=== PATIENT | male | born 1960 | race Caucasian/White ===

== ENCOUNTER 2016-11-15 17:13 | Emergency (ER) | payer OTHER ==
[~2016-11-15] VITALS: Ht 177.8 cm; Wt 97.0 kg
[~2016-11-15 17:13] MED LIST: ADVIL,NUPRIN,M200 MG PO; ALEVE220 M2 PO; AMLODIPINE BESYL5 MG PO; AUGMENTIN875 MG PO; CHLORDIAZEPOXID25 MG PO; LIBRIUM25 MG PO; LISINOPRIL20 MG PO; MOBIC7.5 MG PO
[2016-11-15 18:31] VITALS: BP 128/72
== END 2016-11-15 18:35 | disposition home or self-care (01) ==
LOC: EME 17:13
DX: F10.229 Alcohol dependence with intoxication, unspecified (principal); F17.200 Nicotine dependence, unspecified, uncomplicated; Z96.652 Presence of left artificial knee joint; Z96.651 Presence of right artificial knee joint
CPT/HCPCS: 99281; 99284

== ENCOUNTER 2016-12-22 15:25 | Inpatient (IN) | payer OTHER ==
[~2016-12-22] VITALS: Ht 177.8 cm; Wt 97.0 kg
[2016-12-22 16:26] LABS: HEMATOCRIT 43.9 % (38.0-50.0); MCHC 34.6 G/DL (30.0-36.0); MCV 95.4 FL (86-99); MEAN PLAT.VOLUME 11.3 uM^3 (9.0-12.4); PLATELET COUNT 51 K/uL (156-360); RBC DIS.WIDTH-CV 14.2 % (11.8-14.6); RBC DIS.WIDTH-SD 47.9 % (39-53); WHITE BLOOD COUNT 5.7 K/uL (4.1-10.2)
[2016-12-22 16:37] LABS: CHLORIDE 106 mEq/L (99-109); SODIUM 138 mEq/L (136-147)
[2016-12-22 16:39] LABS: GLUCOSE 96 mg/dL (70-99)
[2016-12-22 16:40] LABS: ANION GAP 11 MEQ/L (2-14)
[2016-12-22 16:42] LABS: SERUM ETHYL ALCOHOL < 10 mg/dL
[2016-12-22 16:43] LABS: GFR ESTIMATE (CALCULATED) > 59 mL/min/
[2016-12-22 16:44] LABS: UREA NITROGEN (BUN) 18 mg/dL (9-23)
[2016-12-22 17:28] VITALS: BP 153/98
[2016-12-22 18:01] VITALS: BP 161/108
[2016-12-22 18:31] VITALS: BP 110/92
[2016-12-22 20:13] LABS: PLAT.SUFFICIENCY DECREASED
[2016-12-22 22:01] LABS: AMPHETAMINE NEGATIVE (500 ng/mL); BARBITURATES NEGATIVE (200 ng/mL); BENZODIAZEPINES NEGATIVE (150 ng/mL); COCAINE NEGATIVE (150 ng/mL); INTERNAL CONTROLS VALID? YES; METHADONE NEGATIVE (200 ng/mL); METHAMPHETAMINE NEGATIVE (500 ng/mL); OPIATES (MORPHINE) NEGATIVE (100 ng/mL); OXYCODONE NEGATIVE (100 ng/mL); PHENCYCLIDINE NEGATIVE (25 ng/mL); PROPOXYPHENE NEGATIVE (300 ng/mL); THC CANNABINOIDS NEGATIVE (50 ng/mL); TRICYCLIC ANTIDEPRESSANTS PRESUMPTIVE POSITIVE (300 ng/mL)
[2016-12-23 06:21] LABS: HEMATOCRIT 41.5 % (38.0-50.0); MCH 32.5 PG (29.0-34.0); MCHC 33.5 G/DL (30.0-36.0); MEAN PLAT.VOLUME 11.3 uM^3 (9.0-12.4); PLATELET COUNT 59 K/uL (156-360); RBC DIS.WIDTH-CV 14.2 % (11.8-14.6); RBC DIS.WIDTH-SD 48.4 % (39-53); RED BLOOD COUNT 4.28 M/uL (4.00-5.50); WHITE BLOOD COUNT 4.5 K/uL (4.1-10.2)
[2016-12-23 06:31] LABS: CHLORIDE 104 mEq/L (99-109); POTASSIUM 3.8 mEq/L (3.7-5.4); SODIUM 135 mEq/L (136-147)
[2016-12-23 06:32] LABS: GLUCOSE 97 mg/dL (70-99)
[2016-12-23 06:34] LABS: ANION GAP 11 MEQ/L (2-14)
[2016-12-23 06:36] LABS: GFR ESTIMATE (CALCULATED) > 59 mL/min/
[2016-12-23 06:37] LABS: UREA NITROGEN (BUN) 16 mg/dL (9-23)
[2016-12-23 09:00] VITALS: BP 125/75
[2016-12-24] MEDS ORDERED: LIBRIUM25 MG PO (20:02)
== END 2016-12-23 12:30 | disposition left against medical advice (07) | DRG 92 ==
LOC: EME 15:25 → EDOF 23:01
PROVIDERS: Emergency Medicine; Hospitalist
DX: G25.0 Essential tremor (principal); F10.239 Alcohol dependence with withdrawal, unspecified; Z86.73 Personal history of transient ischemic attack (TIA), and cerebral infarction without residual deficits; Z86.711 Personal history of pulmonary embolism; Z86.718 Personal history of other venous thrombosis and embolism; F41.9 Anxiety disorder, unspecified; F17.210 Nicotine dependence, cigarettes, uncomplicated
CPT/HCPCS: 70450; 80048; 81003; 84443; 85007; 85027; 93005; 95819; 99281; 99285; G0480; J1630; J1644; J3360; J3411; J7030; J7050

== ENCOUNTER 2016-12-24 17:20 | Emergency (ER) | payer OTHER ==
[~2016-12-24] VITALS: Ht 177.8 cm; Wt 95.0 kg
[2016-12-24 18:33] LABS: HEMATOCRIT 47.3 % (38.0-50.0); MCHC 35.3 G/DL (30.0-36.0); MCV 93.5 FL (86-99); RBC DIS.WIDTH-CV 14.1 % (11.8-14.6); RBC DIS.WIDTH-SD 46.1 % (39-53); RED BLOOD COUNT 5.06 M/uL (4.00-5.50); WHITE BLOOD COUNT 5.6 K/uL (4.1-10.2)
[2016-12-24 18:36] LABS: PLATELET COUNT 77 K/uL (156-360)
[2016-12-24 18:38] LABS: CHLORIDE 104 mEq/L (99-109); SODIUM 137 mEq/L (136-147)
[2016-12-24 18:40] LABS: GLUCOSE 94 mg/dL (70-99)
[2016-12-24 18:41] LABS: ANION GAP 11 MEQ/L (2-14)
[2016-12-24 18:42] LABS: TOTAL BILIRUBIN 0.9 mg/dL (0.0-1.0)
[2016-12-24 18:43] LABS: SERUM ETHYL ALCOHOL < 10 mg/dL
[2016-12-24 18:44] LABS: ALKALINE PHOSPHATASE 72 IU/L (3-129); GFR ESTIMATE (CALCULATED) > 59 mL/min/
[2016-12-24 18:45] LABS: UREA NITROGEN (BUN) 13 mg/dL (9-23)
[2016-12-24] MEDS ORDERED: LIBRIUM25 MG PO (20:02)
[2016-12-24 21:24] VITALS: BP 119/75
== END 2016-12-24 21:28 | disposition home or self-care (01) ==
LOC: EME 17:20
PROVIDERS: Emergency Medicine
DX: F10.239 Alcohol dependence with withdrawal, unspecified (principal); F17.200 Nicotine dependence, unspecified, uncomplicated; Z86.711 Personal history of pulmonary embolism; Z86.718 Personal history of other venous thrombosis and embolism
CPT/HCPCS: 70450; 80053; 82140; 85027; 90839; 93005; 99281; 99284; G0480

== ENCOUNTER 2017-01-04 14:52 | Inpatient (IN) | payer OTHER ==
[~2017-01-04] VITALS: Ht 177.8 cm; Wt 98.1 kg
[2017-01-04 15:21] LABS: HEMATOCRIT 43.8 % (38.0-50.0); MCH 32.8 PG (29.0-34.0); MCHC 34.7 G/DL (30.0-36.0); MCV 94.6 FL (86-99); MEAN PLAT.VOLUME 9.2 uM^3 (9.0-12.4); RBC DIS.WIDTH-CV 14.9 % (11.8-14.6); RBC DIS.WIDTH-SD 49.5 % (39-53); RED BLOOD COUNT 4.63 M/uL (4.00-5.50)
[2017-01-04 15:29] LABS: CHLORIDE 105 mEq/L (99-109); POTASSIUM 3.7 mEq/L (3.7-5.4); SODIUM 142 mEq/L (136-147)
[2017-01-04 15:31] LABS: GLUCOSE 89 mg/dL (70-99)
[2017-01-04 15:32] LABS: ANION GAP 16 MEQ/L (2-14)
[2017-01-04 15:35] LABS: GFR ESTIMATE (CALCULATED) > 59 mL/min/
[2017-01-04 15:36] LABS: UREA NITROGEN (BUN) 14 mg/dL (9-23)
[2017-01-04 15:41] LABS: TROP-I INTERPRETATION NEGATIVE; TROPONIN-I < 0.01 ng/mL (0.0-0.30)
[2017-01-04 15:47] LABS: PLATELET COUNT 262 K/uL (156-360); WHITE BLOOD COUNT 7.7 K/uL (4.1-10.2)
[2017-01-04 16:33] LABS: BASOPHIL COUNT 0.1 K/uL (0-0.1); EOSINOPHIL (%) 4.2 % (0-5); EOSINOPHIL COUNT 0.3 K/uL (0-0.3); IMMATURE GRANULOCYTE (%) 0.1 % (0.0-0.7); IMMATURE GRANULOCYTE COUNT 0.1 K/uL; LYMPHOCYTE COUNT 1.6 K/uL (1.0-2.8); MONOCYTE COUNT 0.6 K/uL (0-0.8); NEUTROPHIL (%) 65.8 % (45-76)
[2017-01-04 16:37] LABS: MAGNESIUM 1.7 mg/dL (1.3-2.7)
[2017-01-04 16:41] LABS: TOTAL BILIRUBIN 0.5 mg/dL (0.0-1.0)
[2017-01-04 16:42] LABS: ALKALINE PHOSPHATASE 75 IU/L (3-129); SERUM ETHYL ALCOHOL 250 mg/dL
[2017-01-04 16:44] LABS: DIRECT BILIRUBIN 0.2 mg/dL (0.0-0.3)
[2017-01-04 21:45] LABS: D-DIMER ELISA 2.32 mg/L FEU (< 0.57)
[2017-01-04 21:56] LABS: TROP-I INTERPRETATION NEGATIVE; TROPONIN-I 0.01 ng/mL (0.0-0.30)
[2017-01-04 22:01] LABS: HDL CHOLESTEROL 99 MG/DL (Desirable>=40); LDL CHOLESTEROL 72 mg/dL (Desirable<100); NON-HDL CHOLESTEROL 88 mg/dL (Desirable<160); TOTAL CHOLESTEROL 187 mg/dL (Desirable<200); TRIGLYCERIDES 78 MG/DL (Normal: <150)
[2017-01-04 22:05] VITALS: BP 178/86
[2017-01-05 03:35] VITALS: BP 175/89
[2017-01-05 04:33] LABS: HEMATOCRIT 44.4 % (38.0-50.0); MCH 32.8 PG (29.0-34.0); MCHC 34.5 G/DL (30.0-36.0); MCV 95.3 FL (86-99); MEAN PLAT.VOLUME 8.9 uM^3 (9.0-12.4); PLATELET COUNT 222 K/uL (156-360); RBC DIS.WIDTH-SD 50.2 % (39-53); RED BLOOD COUNT 4.66 M/uL (4.00-5.50)
[2017-01-05 04:53] LABS: TROP-I INTERPRETATION NEGATIVE; TROPONIN-I 0.01 ng/mL (0.0-0.30)
[2017-01-05 08:07] VITALS: BP 180/104
[2017-01-05 08:44] LABS: Estimated Average Glucose 105 mg/dL (70-123); HEMOGLOBIN A1c (GLYCOHEMOGLOB) 5.3 % HGB (Below 5.7)
[2017-01-05] MEDS ORDERED: SYSTANE 0.3-0.1 EACH BOTH EYES (11:54)
[2017-01-05] MEDS ORDERED: ELIQUIS2.5 MG PO (12:01)
[2017-01-05 12:13] VITALS: BP 174/63
[2017-01-05 19:55] VITALS: BP 161/88
[2017-01-05 23:51] VITALS: BP 156/89
[2017-01-06 04:25] VITALS: BP 159/96
[2017-01-06 06:10] LABS: HEMATOCRIT 44.9 % (38.0-50.0); MCHC 35.2 G/DL (30.0-36.0); MCV 96.6 FL (86-99); PLATELET COUNT 219 K/uL (156-360); RBC DIS.WIDTH-CV 14.8 % (11.8-14.6); RBC DIS.WIDTH-SD 51.8 % (39-53); RED BLOOD COUNT 4.65 M/uL (4.00-5.50); WHITE BLOOD COUNT 4.6 K/uL (4.1-10.2)
[2017-01-06 06:35] LABS: ANION GAP 9 MEQ/L (2-14); CHLORIDE 103 MEQ/L (99-109); GFR ESTIMATE (CALCULATED) > 59 mL/min/; GLUCOSE 109 mg/dL (70-99); POTASSIUM 3.4 MEQ/L (3.7-5.4); SAMPLE HEMOLYSIS CHECK 0; SAMPLE ICTERIC CHECK 0; SAMPLE LIPEMIA CHECK 0; SODIUM 137 MEQ/L (136-147); UREA NITROGEN (BUN) 10 mg/dL (9-23)
[2017-01-06 07:29] VITALS: BP 130/67
[2017-01-06 11:50] VITALS: BP 166/88
[2017-01-06] MEDS ORDERED: AMLODIPINE BESYL5 MG PO (13:52)
[2017-01-06] MEDS ORDERED: NITROSTAT0.4 MG SL (13:52)
[2017-01-06] MEDS ORDERED: NICOTINE PATCH1 EAC2 TD (13:52)
[2017-01-06] MEDS ORDERED: LOPRESSOR25 MG PO (13:52)
[2017-01-06] MEDS ORDERED: PRAVASTATIN SOD40 MG PO (13:52)
[2017-01-06] MEDS ORDERED: ELIQUIS2.5 MG PO (13:52)
[2017-01-06] MEDS ORDERED: ASPIR-LOW81 MG PO (13:52)
== END 2017-01-06 14:47 | disposition home or self-care (01) | DRG 69 ==
LOC: EME 14:52 → 5SOUTH 20:35 → EDOF 20:35 → 5SOUTH 22:09
PROVIDERS: Hospitalist; Internal Medicine
DX: G45.9 Transient cerebral ischemic attack, unspecified (principal); F10.239 Alcohol dependence with withdrawal, unspecified; F33.9 Major depressive disorder, recurrent, unspecified; I48.0 Paroxysmal atrial fibrillation; F41.9 Anxiety disorder, unspecified; K29.20 Alcoholic gastritis without bleeding; R00.0 Tachycardia, unspecified; F17.210 Nicotine dependence, cigarettes, uncomplicated; E66.9 Obesity, unspecified; Z91.128 Patient's intentional underdosing of medication regimen for other reason; Z68.31 Body mass index [BMI] 31.0-31.9, adult; Z86.718 Personal history of other venous thrombosis and embolism; Z86.711 Personal history of pulmonary embolism; Z96.653 Presence of artificial knee joint, bilateral; Z80.9 Family history of malignant neoplasm, unspecified; Z83.79 Family history of other diseases of the digestive system; Z83.3 Family history of diabetes mellitus
CPT/HCPCS: 70450; 70551; 71020; 71275; 80048; 80061; 80076; 83036; 83735; 84484; 85025; 85027; 85379; 93005; 93306; 93880; 99281; 99285; G0480; J1650; J2060; J3411; J7030

== ENCOUNTER 2017-01-07 01:53 | Emergency (ER) | payer OTHER ==
[~2017-01-07] VITALS: Ht 185.4 cm; Wt 94.9 kg
[~2017-01-07 01:53] MED LIST changes: +ASPIR-LOW81 MG PO; +ELIQUIS2.5 MG PO; +LOPRESSOR25 MG PO; +NICOTINE PATCH1 EAC2 TD; +NITROSTAT0.4 MG SL; +PRAVASTATIN SOD40 MG PO; +SYSTANE 0.3-0.1 EACH BOTH EYES
[2017-01-07 02:48] LABS: HEMATOCRIT 46.1 % (38.0-50.0); MCH 32.9 PG (29.0-34.0); MCHC 34.5 G/DL (30.0-36.0); MCV 95.2 FL (86-99); MEAN PLAT.VOLUME 9.1 uM^3 (9.0-12.4); PLATELET COUNT 182 K/uL (156-360); RBC DIS.WIDTH-CV 14.9 % (11.8-14.6); RBC DIS.WIDTH-SD 50.6 % (39-53); RED BLOOD COUNT 4.84 M/uL (4.00-5.50); WHITE BLOOD COUNT 6.8 K/uL (4.1-10.2)
[2017-01-07 02:54] LABS: CHLORIDE 105 mEq/L (99-109); POTASSIUM 3.4 mEq/L (3.7-5.4); SODIUM 138 mEq/L (136-147)
[2017-01-07 02:56] LABS: GLUCOSE 91 mg/dL (70-99)
[2017-01-07 02:57] LABS: ANION GAP 13 MEQ/L (2-14)
[2017-01-07 02:59] LABS: GFR ESTIMATE (CALCULATED) > 59 mL/min/; SERUM ETHYL ALCOHOL 168 mg/dL
[2017-01-07 03:00] LABS: UREA NITROGEN (BUN) 12 mg/dL (9-23)
[2017-01-07 03:06] LABS: TROP-I INTERPRETATION NEGATIVE; TROPONIN-I 0.12 ng/mL (0.0-0.30)
[2017-01-07 03:56] VITALS: BP 120/89
== END 2017-01-07 03:58 | disposition home or self-care (01) ==
LOC: EME 01:53
PROVIDERS: Emergency Medicine
DX: F10.129 Alcohol abuse with intoxication, unspecified (principal); R07.9 Chest pain, unspecified; R47.81 Slurred speech; Y90.6 Blood alcohol level of 120-199 mg/100 ml; I48.91 Unspecified atrial fibrillation; T45.7X6A Underdosing of anticoagulant antagonist, vitamin K and other coagulants, initial encounter; Z91.14 Patient's other noncompliance with medication regimen; Z86.718 Personal history of other venous thrombosis and embolism; Z96.652 Presence of left artificial knee joint; Z96.651 Presence of right artificial knee joint; F17.200 Nicotine dependence, unspecified, uncomplicated; Z71.6 Tobacco abuse counseling
CPT/HCPCS: 70450; 71010; 80048; 84484; 85027; 93005; 99281; 99284; G0480

== ENCOUNTER 2017-02-22 15:20 | Emergency (ER) | payer OTHER ==
[~2017-02-22] VITALS: Ht 177.8 cm; Wt 99.1 kg
[2017-02-22 17:07] LABS: HEMATOCRIT 44.6 % (38.0-50.0); MCH 33.6 PG (29.0-34.0); MCHC 34.1 G/DL (30.0-36.0); MCV 98.5 FL (86-99); PLATELET COUNT 150 K/uL (156-360); RBC DIS.WIDTH-CV 14.2 % (11.8-14.6); RBC DIS.WIDTH-SD 51.5 % (39-53); RED BLOOD COUNT 4.53 M/uL (4.00-5.50)
[2017-02-22 17:18] LABS: CHLORIDE 103 mEq/L (99-109); PTT 26.9 (25-32); SODIUM 140 mEq/L (136-147)
[2017-02-22 17:20] LABS: GLUCOSE 86 mg/dL (70-99)
[2017-02-22 17:21] LABS: ANION GAP 16 MEQ/L (2-14)
[2017-02-22 17:24] LABS: GFR ESTIMATE (CALCULATED) > 59 mL/min/
[2017-02-22 17:25] LABS: UREA NITROGEN (BUN) 12 mg/dL (9-23)
[2017-02-22] MEDS ORDERED: ASPIRIN325 MG PO (18:48)
[2017-02-22 19:01] VITALS: BP 149/95
== END 2017-02-22 19:02 | disposition home or self-care (01) ==
LOC: EME 15:20
PROVIDERS: Emergency Medicine
DX: S70.12XA Contusion of left thigh, initial encounter (principal); T45.516A Underdosing of anticoagulants, initial encounter; F17.200 Nicotine dependence, unspecified, uncomplicated; Z91.128 Patient's intentional underdosing of medication regimen for other reason; Z86.718 Personal history of other venous thrombosis and embolism; Z86.711 Personal history of pulmonary embolism; Z96.653 Presence of artificial knee joint, bilateral
CPT/HCPCS: 80048; 85027; 85610; 85730; 93971; 99281; 99284

== ENCOUNTER 2017-03-18 10:10 | Emergency (ER) | payer OTHER ==
[~2017-03-18] VITALS: Ht 177.8 cm; Wt 95.4 kg
[~2017-03-18 10:10] MED LIST changes: +ASPIRIN325 MG PO
[2017-03-18] MEDS ORDERED: ANAPROX DS550 M1 PO (10:40)
[2017-03-18 11:00] VITALS: BP 132/78
== END 2017-03-18 11:03 | disposition home or self-care (01) ==
LOC: EME 10:10
DX: M54.5 Low back pain (principal); F32.9 Major depressive disorder, single episode, unspecified; F17.200 Nicotine dependence, unspecified, uncomplicated
CPT/HCPCS: 99281; 99284

== ENCOUNTER 2017-03-24 06:34 | Observation (INO) | payer OTHER ==
[~2017-03-24] VITALS: Ht 177.8 cm; Wt 93.5 kg
[~2017-03-24 06:34] MED LIST changes: +ANAPROX DS550 M1 PO
[2017-03-24 07:52] LABS: ADD MIUA? YES; BILIRUBIN NEGATIVE; BLOOD NEGATIVE; COLOR AMBER ((YELLOW)); GLUCOSE (STRIP) NEGATIVE; KETONES 20; LEUKOCYTES NEGATIVE; NITRITE NEGATIVE; PROTEIN (STRIP) 30; SPECIFIC GRAVITY 1.031 (1.000-1.030); UROBILINOGEN 0.2 MG/DL (0.2-1.0)
[2017-03-24 08:00] LABS: BASOPHIL COUNT 0.1 K/uL (0-0.1); EOSINOPHIL (%) 1.5 % (0-5); EOSINOPHIL COUNT 0.1 K/uL (0-0.3); HEMATOCRIT 43.5 % (38.0-50.0); IMMATURE GRANULOCYTE (%) 0.4 % (0.0-0.7); INSTRUMENT ABS NEUTROPHIL CT 5.9 K/uL; LYMPHOCYTE COUNT 1.4 K/uL (1.0-2.8); MCHC 34.7 G/DL (30.0-36.0); MONOCYTE (%) 7.8 % (3-12); MONOCYTE COUNT 0.6 K/uL (0-0.8); NEUTROPHIL (%) 72.1 % (45-76); NEUTROPHIL COUNT 5.9 K/uL (1.8-6.4); RBC DIS.WIDTH-CV 12.9 % (11.8-14.6); RED BLOOD COUNT 4.44 M/uL (4.00-5.50)
[2017-03-24 08:06] LABS: D-DIMER ELISA 0.96 mg/L FEU (< 0.57); PTT 27.6 (25-32)
[2017-03-24 08:10] LABS: CHLORIDE 105 mEq/L (99-109); SODIUM 135 mEq/L (136-147)
[2017-03-24 08:12] LABS: GLUCOSE 94 mg/dL (70-99)
[2017-03-24 08:13] LABS: ANION GAP 11 MEQ/L (2-14)
[2017-03-24 08:14] LABS: TROP-I INTERPRETATION NEGATIVE; TROPONIN-I < 0.01 ng/mL (0.0-0.30)
[2017-03-24 08:15] LABS: GFR ESTIMATE (CALCULATED) > 59 mL/min/
[2017-03-24 08:16] LABS: UREA NITROGEN (BUN) 31 mg/dL (9-23)
[2017-03-24 08:21] LABS: WHITE BLOOD COUNT 8.2 K/uL (4.1-10.2)
[2017-03-24 08:41] LABS: BACTERIA NONE SEEN /HPF; CALCIUM OXALATE CRYSTALS 1+ /HPF; EPITHELIAL CELLS NONE SEEN /HPF; MUCUS TRACE /LPF; RED BLOOD CELLS 0-5 /HPF (0-5); UCUL ADDED? NO; WHITE BLOOD CELLS 0-5 /HPF (0-5)
[2017-03-24 09:32] LABS: MEAN PLAT.VOLUME 10.2 uM^3 (9.0-12.4); PLAT.SUFFICIENCY DECREASED
[2017-03-24 09:34] LABS: PLATELET COUNT 104 K/uL (156-360)
[2017-03-24 13:04] LABS: AMPHETAMINE NEGATIVE (500 ng/mL); BENZODIAZEPINES PRESUMPTIVE POSITIVE (150 ng/mL); COCAINE NEGATIVE (150 ng/mL); METHAMPHETAMINE NEGATIVE (500 ng/mL); OPIATES (MORPHINE) NEGATIVE (100 ng/mL); PHENCYCLIDINE NEGATIVE (25 ng/mL); THC CANNABINOIDS NEGATIVE (50 ng/mL)
[2017-03-24 13:05] LABS: ADD MEDTOX COMMENT Y; BARBITURATES NEGATIVE (200 ng/mL); INTERNAL CONTROLS VALID? YES; METHADONE NEGATIVE (200 ng/mL); OXYCODONE NEGATIVE (100 ng/mL); PROPOXYPHENE NEGATIVE (300 ng/mL); TRICYCLIC ANTIDEPRESSANTS NEGATIVE (300 ng/mL)
[2017-03-24] MEDS ORDERED: NORVASC5 MG PO (13:41)
[2017-03-24] MEDS ORDERED: ASPIRIN EC325 MG PO (13:42)
[2017-03-24] MEDS ORDERED: BUPROPION HCL150 M2 PO (13:43)
[2017-03-24 14:24] LABS: BENZODIAZEPINES QUANT VALUE 0 NG/ML; BENZODIAZEPINES, URINE SCREEN Negative (200 ng/mL)
[2017-03-24 18:15] VITALS: BP 145/72
[2017-03-24 18:53] VITALS: BP 134/75
[2017-03-25] VITALS: BP 131/70
[2017-03-25 03:57] VITALS: BP 129/77
[2017-03-25 07:14] VITALS: BP 140/75
[2017-03-25 08:37] LABS: ANION GAP 11 MEQ/L (2-14); CHLORIDE 103 MEQ/L (99-109); GFR ESTIMATE (CALCULATED) > 59 mL/min/; GLUCOSE 78 mg/dL (70-99); SAMPLE HEMOLYSIS CHECK 0; SAMPLE ICTERIC CHECK 0; SAMPLE LIPEMIA CHECK 0; SODIUM 135 MEQ/L (136-147); UREA NITROGEN (BUN) 15 mg/dL (9-23)
[2017-03-25 08:40] LABS: HEMATOCRIT 42.5 % (38.0-50.0); MCH 33.5 PG (29.0-34.0); MCHC 33.6 G/DL (30.0-36.0); MCV 99.5 FL (86-99); RBC DIS.WIDTH-CV 12.9 % (11.8-14.6); RBC DIS.WIDTH-SD 47.3 % (39-53); RED BLOOD COUNT 4.27 M/uL (4.00-5.50)
[2017-03-25 08:43] LABS: WHITE BLOOD COUNT 4.6 K/uL (4.1-10.2)
[2017-03-25 08:47] LABS: MEAN PLAT.VOLUME 10.6 uM^3 (9.0-12.4); PLAT.SUFFICIENCY DECREASED
[2017-03-25 08:59] LABS: PLATELET COUNT 71 K/uL (156-360)
[2017-03-25 11:08] VITALS: BP 132/78
[2017-03-25] MEDS ORDERED: TRAMADOL HCL50 MG PO (11:30)
== END 2017-03-25 12:10 | disposition home or self-care (01) ==
LOC: EME 06:34 → EDOF 15:53 → 5WEST 15:53
PROVIDERS: Emergency Medicine; Internal Medicine
DX: M54.5 Low back pain (principal); E86.0 Dehydration; G89.29 Other chronic pain; I10 Essential (primary) hypertension; I48.0 Paroxysmal atrial fibrillation; R44.0 Auditory hallucinations; R44.1 Visual hallucinations; R06.02 Shortness of breath; R05 Cough; F10.20 Alcohol dependence, uncomplicated; Z86.73 Personal history of transient ischemic attack (TIA), and cerebral infarction without residual deficits; Z86.711 Personal history of pulmonary embolism; F17.200 Nicotine dependence, unspecified, uncomplicated
CPT/HCPCS: 70450; 70551; 71010; 71275; 72100; 80048; 81003; 84484; 84999; 85025; 85027; 85379; 85610; 85730; 90839; 93005; 99281; 99285; G0378; J1644; J1885; J7030

== ENCOUNTER 2017-04-14 17:39 | Emergency (ER) | payer OTHER ==
[~2017-04-14] VITALS: Ht 177.8 cm; Wt 90.9 kg
[~2017-04-14 17:39] MED LIST changes: +ASPIRIN EC325 MG PO; +BUPROPION HCL150 M2 PO; +NORVASC5 MG PO; +TRAMADOL HCL50 MG PO
[2017-04-14 21:00] VITALS: BP 134/91
[2017-04-14] MEDS ORDERED: UNABLE TO OBTAIN (21:22)
== END 2017-04-14 21:24 | disposition home or self-care (01) ==
LOC: EME 17:39
DX: F10.129 Alcohol abuse with intoxication, unspecified (principal); S80.211A Abrasion, right knee, initial encounter; W19.XXXA Unspecified fall, initial encounter; I10 Essential (primary) hypertension; F32.9 Major depressive disorder, single episode, unspecified; Z86.73 Personal history of transient ischemic attack (TIA), and cerebral infarction without residual deficits; Z96.653 Presence of artificial knee joint, bilateral; Z86.711 Personal history of pulmonary embolism; Z86.718 Personal history of other venous thrombosis and embolism; Z79.82 Long term (current) use of aspirin; F17.200 Nicotine dependence, unspecified, uncomplicated
CPT/HCPCS: 70450; 99281; 99284

== ENCOUNTER 2017-04-20 12:30 | Emergency (ER) | payer OTHER ==
[~2017-04-20] VITALS: Ht 180.3 cm; Wt 96.9 kg
[~2017-04-20 12:30] MED LIST changes: +UNABLE TO OBTAIN
[2017-04-20 14:07] LABS: HEMATOCRIT 46.9 % (38.0-50.0); MCH 33.5 PG (29.0-34.0); MEAN PLAT.VOLUME 9.5 uM^3 (9.0-12.4); RBC DIS.WIDTH-CV 13.2 % (11.8-14.6); RBC DIS.WIDTH-SD 47.4 % (39-53); RED BLOOD COUNT 4.89 M/uL (4.00-5.50); WHITE BLOOD COUNT 5.2 K/uL (4.1-10.2)
[2017-04-20 14:13] LABS: MCV 95.9 FL (86-99); PLATELET COUNT 132 K/uL (156-360)
[2017-04-20 14:14] LABS: CHLORIDE 103 mEq/L (99-109); POTASSIUM 3.9 mEq/L (3.7-5.4); SODIUM 141 mEq/L (136-147)
[2017-04-20 14:16] LABS: GLUCOSE 87 mg/dL (70-99)
[2017-04-20 14:17] LABS: ANION GAP 14 MEQ/L (2-14)
[2017-04-20 14:19] LABS: SERUM ETHYL ALCOHOL 336 mg/dL
[2017-04-20 14:20] LABS: GFR ESTIMATE (CALCULATED) > 59 mL/min/
[2017-04-20 14:21] LABS: UREA NITROGEN (BUN) 11 mg/dL (9-23)
[2017-04-20 14:36] LABS: TROP-I INTERPRETATION NEGATIVE; TROPONIN-I 0.02 ng/mL (0.0-0.30)
[2017-04-20 15:44] VITALS: BP 147/87
== END 2017-04-20 16:02 | disposition left against medical advice (07) ==
LOC: EME 12:30
PROVIDERS: Emergency Medicine
DX: R55 Syncope and collapse (principal); R51 Headache; F10.129 Alcohol abuse with intoxication, unspecified; Y90.8 Blood alcohol level of 240 mg/100 ml or more; R20.0 Anesthesia of skin; I10 Essential (primary) hypertension; Z86.711 Personal history of pulmonary embolism; Z86.718 Personal history of other venous thrombosis and embolism; Z79.82 Long term (current) use of aspirin; F17.200 Nicotine dependence, unspecified, uncomplicated
CPT/HCPCS: 70450; 71020; 80048; 84484; 85027; 93005; 99281; 99285; G0480; J7030

== ENCOUNTER 2017-04-23 12:58 | Emergency (ER) | payer OTHER ==
[~2017-04-23] VITALS: Ht 177.8 cm; Wt 95.1 kg
[2017-04-23 18:11] LABS: HEMATOCRIT 46.3 % (38.0-50.0); MCH 33.1 PG (29.0-34.0); MCHC 33.7 G/DL (30.0-36.0); MCV 98.1 FL (86-99); MEAN PLAT.VOLUME 9.6 uM^3 (9.0-12.4); PLATELET COUNT 101 K/uL (156-360); RBC DIS.WIDTH-CV 13.2 % (11.8-14.6); RED BLOOD COUNT 4.72 M/uL (4.00-5.50); WHITE BLOOD COUNT 5.3 K/uL (4.1-10.2)
[2017-04-23 18:20] LABS: CHLORIDE 99 mEq/L (99-109); POTASSIUM 4.6 mEq/L (3.7-5.4); SODIUM 139 mEq/L (136-147)
[2017-04-23 18:22] LABS: GLUCOSE 80 mg/dL (70-99)
[2017-04-23 18:23] LABS: ANION GAP 19 MEQ/L (2-14)
[2017-04-23 18:26] LABS: GFR ESTIMATE (CALCULATED) > 59 mL/min/
[2017-04-23 18:27] LABS: UREA NITROGEN (BUN) 17 mg/dL (9-23)
[2017-04-23] MEDS ORDERED: LIBRIUM25 MG PO (18:53)
[2017-04-23 19:36] VITALS: BP 164/95
== END 2017-04-23 19:37 | disposition home or self-care (01) ==
LOC: EME 12:58
PROVIDERS: Emergency Medicine
DX: F10.239 Alcohol dependence with withdrawal, unspecified (principal); R11.2 Nausea with vomiting, unspecified; I10 Essential (primary) hypertension; Z79.82 Long term (current) use of aspirin; F17.200 Nicotine dependence, unspecified, uncomplicated
CPT/HCPCS: 80048; 85027; 99281; 99285; J3360

== ENCOUNTER 2017-04-30 01:03 | Emergency (ER) | payer OTHER ==
[~2017-04-30] VITALS: Ht 177.8 cm; Wt 94.3 kg
[2017-04-30] MEDS ORDERED: NORCO 5/3251 TABLET PO (02:43)
[2017-04-30 02:54] VITALS: BP 107/73
== END 2017-04-30 02:59 | disposition home or self-care (01) ==
LOC: EXP 01:03 → EME 01:03 → EXP 02:59
PROC: 2W3DX1Z Immobilization of Left Lower Arm using Splint (ICD-10-PCS; principal; 2017-04-30)
DX: S50.812A Abrasion of left forearm, initial encounter (principal); S62.307A Unspecified fracture of fifth metacarpal bone, left hand, initial encounter for closed fracture; W22.09XA Striking against other stationary object, initial encounter
CPT/HCPCS: 73130; 99281; 99284

== ENCOUNTER 2017-07-22 12:55 | Emergency (ER) | payer OTHER ==
[~2017-07-22] VITALS: Ht 177.8 cm; Wt 90.8 kg
[~2017-07-22 12:55] MED LIST changes: +NORCO 5/3251 TABLET PO
[2017-07-22 13:10] VITALS: BP 141/88
== END 2017-07-22 13:42 | disposition left against medical advice (07) ==
LOC: EME 12:55
DX: F10.129 Alcohol abuse with intoxication, unspecified (principal); W01.190A Fall on same level from slipping, tripping and stumbling with subsequent striking against furniture, initial encounter; I10 Essential (primary) hypertension; Z86.718 Personal history of other venous thrombosis and embolism; Z86.73 Personal history of transient ischemic attack (TIA), and cerebral infarction without residual deficits; Z96.653 Presence of artificial knee joint, bilateral; F17.200 Nicotine dependence, unspecified, uncomplicated
CPT/HCPCS: 99281; 99283

== ENCOUNTER 2017-07-24 09:27 | Emergency (ER) | payer OTHER ==
[~2017-07-24] VITALS: Ht 177.8 cm; Wt 94.8 kg
[2017-07-24 09:59] LABS: HEMATOCRIT 46.6 % (38.0-50.0); MCH 32.8 PG (29.0-34.0); MCHC 33.9 G/DL (30.0-36.0); MCV 96.9 FL (86-99); MEAN PLAT.VOLUME 9.8 uM^3 (9.0-12.4); PLATELET COUNT 166 K/uL (156-360); RBC DIS.WIDTH-CV 13.3 % (11.8-14.6); RBC DIS.WIDTH-SD 47.8 % (39-53); RED BLOOD COUNT 4.81 M/uL (4.00-5.50); WHITE BLOOD COUNT 7.3 K/uL (4.1-10.2)
[2017-07-24 10:09] LABS: CHLORIDE 99 mEq/L (99-109); SODIUM 140 mEq/L (136-147)
[2017-07-24 10:10] LABS: GLUCOSE 91 mg/dL (70-99)
[2017-07-24 10:12] LABS: ANION GAP 24 MEQ/L (2-14)
[2017-07-24 10:14] LABS: GFR ESTIMATE (CALCULATED) > 59 mL/min/; SERUM ETHYL ALCOHOL < 10 mg/dL
[2017-07-24 10:15] LABS: UREA NITROGEN (BUN) 18 mg/dL (9-23)
[2017-07-24] MEDS ORDERED: LIBRIUM25 MG PO (13:50)
[2017-07-24 14:06] VITALS: BP 162/84
== END 2017-07-24 14:07 | disposition home or self-care (01) ==
LOC: EME 09:27
DX: F10.239 Alcohol dependence with withdrawal, unspecified (principal); I10 Essential (primary) hypertension; F32.9 Major depressive disorder, single episode, unspecified; Z86.718 Personal history of other venous thrombosis and embolism; Z86.73 Personal history of transient ischemic attack (TIA), and cerebral infarction without residual deficits; G89.29 Other chronic pain; M54.9 Dorsalgia, unspecified; F17.200 Nicotine dependence, unspecified, uncomplicated; Z96.653 Presence of artificial knee joint, bilateral; Z79.891 Long term (current) use of opiate analgesic
CPT/HCPCS: 80048; 85027; 99281; 99285; G0480; J2060; J7030

== ENCOUNTER 2017-08-18 14:09 | Emergency (ER) | payer OTHER ==
[~2017-08-18] VITALS: Ht 177.8 cm; Wt 92.9 kg
[2017-08-18 15:06] LABS: HEMATOCRIT 45.4 % (38.0-50.0); MCH 33.3 PG (29.0-34.0); MCHC 34.8 G/DL (30.0-36.0); MCV 95.8 FL (86-99); MEAN PLAT.VOLUME 9.6 uM^3 (9.0-12.4); RBC DIS.WIDTH-CV 12.8 % (11.8-14.6); RBC DIS.WIDTH-SD 45.7 % (39-53); RED BLOOD COUNT 4.74 M/uL (4.00-5.50); WHITE BLOOD COUNT 7.4 K/uL (4.1-10.2)
[2017-08-18 15:09] LABS: PLATELET COUNT 228 K/uL (156-360)
[2017-08-18 15:15] LABS: CHLORIDE 101 mEq/L (99-109); SODIUM 140 mEq/L (136-147)
[2017-08-18 15:17] LABS: GLUCOSE 83 mg/dL (70-99)
[2017-08-18 15:18] LABS: ANION GAP 20 MEQ/L (2-14)
[2017-08-18 15:19] LABS: TOTAL BILIRUBIN 0.3 mg/dL (0.0-1.0)
[2017-08-18 15:20] LABS: SERUM ETHYL ALCOHOL 401 mg/dL
[2017-08-18 15:21] LABS: ALKALINE PHOSPHATASE 57 IU/L (3-129); GFR ESTIMATE (CALCULATED) > 59 mL/min/
[2017-08-18 15:22] LABS: UREA NITROGEN (BUN) 12 mg/dL (9-23)
[2017-08-18] MEDS ORDERED: ULTRAM50 MG PO (16:43)
[2017-08-18 17:41] VITALS: BP 137/77
== END 2017-08-18 17:45 | disposition home or self-care (01) ==
LOC: EME 14:09
PROVIDERS: Emergency Medicine
DX: S70.02XA Contusion of left hip, initial encounter (principal); W18.30XA Fall on same level, unspecified, initial encounter; Y92.000 Kitchen of unspecified non-institutional (private) residence as the place of occurrence of the external cause; F10.129 Alcohol abuse with intoxication, unspecified; I10 Essential (primary) hypertension; Z86.73 Personal history of transient ischemic attack (TIA), and cerebral infarction without residual deficits; Z96.653 Presence of artificial knee joint, bilateral; Z86.711 Personal history of pulmonary embolism; Z86.718 Personal history of other venous thrombosis and embolism; F32.9 Major depressive disorder, single episode, unspecified; F17.200 Nicotine dependence, unspecified, uncomplicated
CPT/HCPCS: 73502; 73552; 80053; 85027; 99281; 99283; G0480

== ENCOUNTER 2017-08-22 15:36 | Emergency (ER) | payer OTHER ==
[~2017-08-22] VITALS: Ht 172.7 cm; Wt 95.4 kg
[~2017-08-22 15:36] MED LIST changes: +ULTRAM50 MG PO
[2017-08-22 16:26] LABS: MCH 33.1 PG (29.0-34.0); MCHC 34.3 G/DL (30.0-36.0); MCV 96.2 FL (86-99); MEAN PLAT.VOLUME 9.3 uM^3 (9.0-12.4); PLATELET COUNT 162 K/uL (156-360); RBC DIS.WIDTH-CV 12.9 % (11.8-14.6); RBC DIS.WIDTH-SD 46.5 % (39-53); RED BLOOD COUNT 4.78 M/uL (4.00-5.50); WHITE BLOOD COUNT 6.8 K/uL (4.1-10.2)
[2017-08-22 16:26] LABS: POINT-OF-CARE METER ID UU13113702
[2017-08-22 16:34] LABS: CHLORIDE 101 mEq/L (99-109); POTASSIUM 3.8 mEq/L (3.7-5.4); SODIUM 143 mEq/L (136-147)
[2017-08-22 16:36] LABS: GLUCOSE 85 mg/dL (70-99)
[2017-08-22 16:38] LABS: ANION GAP 24 MEQ/L (2-14)
[2017-08-22 16:39] LABS: SERUM ETHYL ALCOHOL 354 mg/dL
[2017-08-22 16:40] LABS: GFR ESTIMATE (CALCULATED) > 59 mL/min/
[2017-08-22 16:42] LABS: UREA NITROGEN (BUN) 11 mg/dL (9-23)
[2017-08-22 16:43] LABS: SALICYLATE < 5.0 MG/DL (15-30)
[2017-08-22 17:33] VITALS: BP 125/79
== END 2017-08-22 17:35 | disposition left against medical advice (07) ==
LOC: EME 15:36
PROVIDERS: Emergency Medicine
DX: F10.129 Alcohol abuse with intoxication, unspecified (principal); Y90.8 Blood alcohol level of 240 mg/100 ml or more; R51 Headache; I10 Essential (primary) hypertension; F32.9 Major depressive disorder, single episode, unspecified; Z86.73 Personal history of transient ischemic attack (TIA), and cerebral infarction without residual deficits; F17.200 Nicotine dependence, unspecified, uncomplicated; Z96.653 Presence of artificial knee joint, bilateral; Z86.711 Personal history of pulmonary embolism; Z86.718 Personal history of other venous thrombosis and embolism; Z78.1 Physical restraint status
CPT/HCPCS: 80048; 82948; 85027; 99281; 99284; G0480; J1630

== ENCOUNTER 2017-08-23 11:00 | Emergency (ER) | payer OTHER ==
[~2017-08-23] VITALS: Ht 172.7 cm; Wt 91.9 kg
[2017-08-23 11:50] LABS: BASOPHIL COUNT 0.1 K/uL (0-0.1); EOSINOPHIL (%) 2.7 % (0-5); EOSINOPHIL COUNT 0.1 K/uL (0-0.3); HEMATOCRIT 46.2 % (38.0-50.0); IMMATURE GRANULOCYTE (%) 0.2 % (0.0-0.7); INSTRUMENT ABS NEUTROPHIL CT 2.3 K/uL; LYMPHOCYTE COUNT 1.3 K/uL (1.0-2.8); MCH 32.8 PG (29.0-34.0); MCV 96.7 FL (86-99); MEAN PLAT.VOLUME 9.3 uM^3 (9.0-12.4); MONOCYTE (%) 8.7 % (3-12); MONOCYTE COUNT 0.4 K/uL (0-0.8); NEUTROPHIL (%) 56.4 % (45-76); NEUTROPHIL COUNT 2.3 K/uL (1.8-6.4); PLATELET COUNT 121 K/uL (156-360); RBC DIS.WIDTH-CV 12.9 % (11.8-14.6); RBC DIS.WIDTH-SD 46.5 % (39-53); RED BLOOD COUNT 4.78 M/uL (4.00-5.50); WHITE BLOOD COUNT 4.1 K/uL (4.1-10.2)
[2017-08-23 11:57] LABS: CHLORIDE 101 mEq/L (99-109); POTASSIUM 3.7 mEq/L (3.7-5.4); SODIUM 141 mEq/L (136-147)
[2017-08-23 11:59] LABS: GLUCOSE 95 mg/dL (70-99)
[2017-08-23 12:00] LABS: ANION GAP 17 MEQ/L (2-14)
[2017-08-23 12:02] LABS: SERUM ETHYL ALCOHOL 366 mg/dL
[2017-08-23 12:03] LABS: GFR ESTIMATE (CALCULATED) > 59 mL/min/
[2017-08-23 12:04] LABS: UREA NITROGEN (BUN) 9 mg/dL (9-23)
[2017-08-23 12:05] LABS: ADD MIUA? YES; BILIRUBIN NEGATIVE; BLOOD SMALL; COLOR YELLOW ((YELLOW)); GLUCOSE (STRIP) NEGATIVE; KETONES NEGATIVE; LEUKOCYTES NEGATIVE; NITRITE NEGATIVE; PROTEIN (STRIP) 30; SPECIFIC GRAVITY 1.014 (1.000-1.030)
[2017-08-23 12:09] LABS: BACTERIA NONE SEEN /HPF; EPITHELIAL CELLS NONE SEEN /HPF; MUCUS TRACE /LPF; RED BLOOD CELLS 0-5 /HPF (0-5); WHITE BLOOD CELLS 0-5 /HPF (0-5)
[2017-08-23 12:13] LABS: ADD MEDTOX COMMENT Y; AMPHETAMINE NEGATIVE (500 ng/mL); BARBITURATES NEGATIVE (200 ng/mL); BENZODIAZEPINES PRESUMPTIVE POSITIVE (150 ng/mL); COCAINE NEGATIVE (150 ng/mL); INTERNAL CONTROLS VALID? YES; METHADONE NEGATIVE (200 ng/mL); METHAMPHETAMINE NEGATIVE (500 ng/mL); OPIATES (MORPHINE) NEGATIVE (100 ng/mL); OXYCODONE NEGATIVE (100 ng/mL); PHENCYCLIDINE NEGATIVE (25 ng/mL); PROPOXYPHENE NEGATIVE (300 ng/mL); THC CANNABINOIDS NEGATIVE (50 ng/mL); TRICYCLIC ANTIDEPRESSANTS NEGATIVE (300 ng/mL)
[2017-08-23 12:29] LABS: BENZODIAZEPINES QUANT VALUE 0 NG/ML; BENZODIAZEPINES, URINE SCREEN Negative (200 ng/mL)
[2017-08-23 15:40] VITALS: BP 142/89
== END 2017-08-23 15:40 | disposition home or self-care (01) ==
LOC: EME 11:00
PROVIDERS: Emergency Medicine
DX: F10.129 Alcohol abuse with intoxication, unspecified (principal); R51 Headache; Y90.8 Blood alcohol level of 240 mg/100 ml or more; I10 Essential (primary) hypertension; F32.9 Major depressive disorder, single episode, unspecified; Z86.73 Personal history of transient ischemic attack (TIA), and cerebral infarction without residual deficits; F17.200 Nicotine dependence, unspecified, uncomplicated; Z86.718 Personal history of other venous thrombosis and embolism; Z96.653 Presence of artificial knee joint, bilateral
CPT/HCPCS: 70450; 80048; 81003; 84999; 85025; 99281; 99285; G0480

== ENCOUNTER 2017-10-19 12:00 | Emergency (ER) | payer OTHER ==
[~2017-10-19] VITALS: Ht 172.7 cm; Wt 99.8 kg
[~2017-10-19 12:00] MED LIST changes: +ATARAX,VISTARIL25 MG PO; +B-1100 MG PO; +ELIQUIS5 MG PO; +ESCITALOPRAM OXA5 MG PO; +FOLIC ACID1 MG PO; +VENTOLIN HFA18 GM IH
[2017-10-19 12:43] LABS: BASOPHIL COUNT 0.1 K/uL (0-0.1); EOSINOPHIL (%) 7.5 % (0-5); EOSINOPHIL COUNT 0.4 K/uL (0-0.3); HEMATOCRIT 48.4 % (38.0-50.0); IMMATURE GRANULOCYTE COUNT 0.1 K/uL; INSTRUMENT ABS NEUTROPHIL CT 2.8 K/uL; LYMPHOCYTE COUNT 2.1 K/uL (1.0-2.8); MCH 33.9 PG (29.0-34.0); MCHC 34.7 G/DL (30.0-36.0); MCV 97.8 FL (86-99); MEAN PLAT.VOLUME 9.3 uM^3 (9.0-12.4); MONOCYTE (%) 6.7 % (3-12); MONOCYTE COUNT 0.4 K/uL (0-0.8); NEUTROPHIL (%) 47.5 % (45-76); NEUTROPHIL COUNT 2.8 K/uL (1.8-6.4); PLATELET COUNT 209 K/uL (156-360); RBC DIS.WIDTH-CV 14.5 % (11.8-14.6); RBC DIS.WIDTH-SD 52.5 % (39-53); RED BLOOD COUNT 4.95 M/uL (4.00-5.50); WHITE BLOOD COUNT 5.8 K/uL (4.1-10.2)
[2017-10-19 12:45] LABS: ADD MIUA? YES; BILIRUBIN NEGATIVE; BLOOD SMALL; COLOR STRAW ((YELLOW)); GLUCOSE (STRIP) NEGATIVE; KETONES NEGATIVE; LEUKOCYTES NEGATIVE; NITRITE NEGATIVE; PROTEIN (STRIP) NEGATIVE; UROBILINOGEN 0.2 MG/DL (0.2-1.0)
[2017-10-19 12:47] LABS: BACTERIA NONE SEEN /HPF; EPITHELIAL CELLS RARE /HPF; MUCUS TRACE /LPF; RED BLOOD CELLS 0-5 /HPF (0-5); WHITE BLOOD CELLS 0-5 /HPF (0-5)
[2017-10-19 12:51] LABS: CHLORIDE 105 mEq/L (99-109); POTASSIUM 4.1 mEq/L (3.7-5.4); SODIUM 143 mEq/L (136-147)
[2017-10-19 12:52] LABS: GLUCOSE 93 mg/dL (70-99)
[2017-10-19 12:54] LABS: ANION GAP 14 MEQ/L (2-14)
[2017-10-19 12:55] LABS: SERUM ETHYL ALCOHOL 364 mg/dL
[2017-10-19 12:56] LABS: GFR ESTIMATE (CALCULATED) > 59 mL/min/ (58.99-99999)
[2017-10-19 12:56] LABS: AMPHETAMINE NEGATIVE (500 ng/mL); BARBITURATES NEGATIVE (200 ng/mL); BENZODIAZEPINES PRESUMPTIVE POSITIVE (150 ng/mL); COCAINE NEGATIVE (150 ng/mL); INTERNAL CONTROLS VALID? YES; METHADONE NEGATIVE (200 ng/mL); METHAMPHETAMINE NEGATIVE (500 ng/mL); OPIATES (MORPHINE) NEGATIVE (100 ng/mL); OXYCODONE NEGATIVE (100 ng/mL); PHENCYCLIDINE NEGATIVE (25 ng/mL); PROPOXYPHENE NEGATIVE (300 ng/mL); THC CANNABINOIDS NEGATIVE (50 ng/mL); TRICYCLIC ANTIDEPRESSANTS NEGATIVE (300 ng/mL)
[2017-10-19 12:57] LABS: ADD MEDTOX COMMENT Y
[2017-10-19 12:57] LABS: UREA NITROGEN (BUN) 15 mg/dL (9-23)
[2017-10-19 13:36] LABS: BENZODIAZEPINES QUANT VALUE 0 NG/ML; BENZODIAZEPINES, URINE SCREEN Negative (200 ng/mL)
[2017-10-19 23:48] VITALS: BP 191/106
[2017-10-20] MEDS ORDERED: ASPIRIN325 MG PO (13:47)
[2017-10-20] MEDS ORDERED: PROAIR HFA8.5 GM IH (13:52)
[2017-10-20] MEDS ORDERED: VITAMIN B-1100 MG PO (13:58)
[2017-10-20] MEDS ORDERED: FOLIC ACID1 MG PO (13:59)
[2017-10-20] MEDS ORDERED: WELLBUTRIN SR150 MG PO (14:00)
[2017-10-20] MEDS ORDERED: ALEVE220 MG PO (14:02)
[2017-10-20] MEDS ORDERED: ASPIR 8181 M1 PO (14:27)
[2017-10-20] MEDS ORDERED: NITROSTAT0.4 MG SL (14:28)
== END 2017-10-19 23:49 | disposition home or self-care (01) ==
LOC: EME 12:00
PROVIDERS: Emergency Medicine
DX: F10.129 Alcohol abuse with intoxication, unspecified (principal); F33.1 Major depressive disorder, recurrent, moderate; R45.851 Suicidal ideations; Y90.8 Blood alcohol level of 240 mg/100 ml or more; I10 Essential (primary) hypertension; Z86.73 Personal history of transient ischemic attack (TIA), and cerebral infarction without residual deficits; Z86.711 Personal history of pulmonary embolism; Z86.718 Personal history of other venous thrombosis and embolism; Z79.01 Long term (current) use of anticoagulants; F17.200 Nicotine dependence, unspecified, uncomplicated
CPT/HCPCS: 80048; 81003; 84999; 85025; 90837; G0480

== ENCOUNTER 2017-11-06 07:53 | Day surgery (SDC) | payer OTHER ==
[~2017-11-06] VITALS: Ht 172.7 cm; Wt 100.2 kg
[~2017-11-06 07:53] MED LIST changes: +ALEVE220 MG PO; +ASPIR 8181 M1 PO; +PROAIR HFA8.5 GM IH; +VITAMIN B-1100 MG PO; +WELLBUTRIN SR150 MG PO
[2017-11-06 08:30] VITALS: BP 143/76
[2017-11-06 12:37] VITALS: BP 131/75
[2017-11-06 13:42] VITALS: BP 116/69
== END 2017-11-06 13:50 | disposition home or self-care (01) ==
LOC: SDC
DX: M19.032 Primary osteoarthritis, left wrist (principal); G56.02 Carpal tunnel syndrome, left upper limb; S63.392A Traumatic rupture of other ligament of left wrist, initial encounter; W22.09XA Striking against other stationary object, initial encounter; I10 Essential (primary) hypertension; I48.91 Unspecified atrial fibrillation; G47.30 Sleep apnea, unspecified; F17.200 Nicotine dependence, unspecified, uncomplicated; Z86.711 Personal history of pulmonary embolism; Z86.718 Personal history of other venous thrombosis and embolism; Z86.73 Personal history of transient ischemic attack (TIA), and cerebral infarction without residual deficits; Z79.82 Long term (current) use of aspirin
CPT/HCPCS: 73110; 76000; J0690; J1100; J1170; J2250; J2405; J3010; S0020

== ENCOUNTER 2017-11-29 23:22 | Emergency (ER) | payer OTHER ==
[~2017-11-29] VITALS: Ht 177.8 cm; Wt 101.9 kg
[2017-11-30 02:27] VITALS: BP 110/67
== END 2017-11-30 02:34 | disposition home or self-care (01) ==
LOC: EME 23:22
DX: S93.602A Unspecified sprain of left foot, initial encounter (principal); X50.9XXA Other and unspecified overexertion or strenuous movements or postures, initial encounter; Z86.718 Personal history of other venous thrombosis and embolism; Z86.711 Personal history of pulmonary embolism; F17.200 Nicotine dependence, unspecified, uncomplicated; Z79.82 Long term (current) use of aspirin
CPT/HCPCS: 73610; 99281; 99283

== ENCOUNTER 2018-01-24 15:03 | Emergency (ER) | payer OTHER ==
[~2018-01-24] VITALS: Ht 180.3 cm; Wt 102.9 kg
[2018-01-24 16:13] LABS: BASOPHIL (%) 0.1 % (0-1); EOSINOPHIL (%) 0 % (0-5); HEMATOCRIT 43.8 % (38.0-50.0); HEMOGLOBIN 15.4 G/DL (12.5-16.6); IMMATURE GRANULOCYTE (%) 0.7 % (0.0-0.7); LYMPHOCYTE (%) 12.1 % (15-42); LYMPHOCYTE COUNT 0.9 K/uL (1.0-2.8); MCH 33.8 PG (29.0-34.0); MCHC 35.2 G/DL (30.0-36.0); MCV 96.3 FL (86-99); MONOCYTE (%) 4.4 % (3-12); MONOCYTE COUNT 0.3 K/uL (0-0.8); NEUTROPHIL (%) 82.7 % (45-76); NEUTROPHIL COUNT 6.3 K/uL (1.8-6.4); RBC DIS.WIDTH-CV 13.1 % (11.8-14.6); RBC DIS.WIDTH-SD 46.6 % (39-53); RED BLOOD COUNT 4.55 M/uL (4.00-5.50); WHITE BLOOD COUNT 7.7 K/uL (4.1-10.2)
[2018-01-24 16:15] LABS: PLATELET COUNT 103 K/uL (156-360)
[2018-01-24 16:22] LABS: CHLORIDE 103 mEq/L (99-109); POTASSIUM 4.3 mEq/L (3.7-5.4); SODIUM 134 mEq/L (136-147)
[2018-01-24 16:24] LABS: GLUCOSE 134 mg/dL (70-99)
[2018-01-24 16:27] LABS: CREATININE 0.9 mg/dL (0.6-1.3); GFR ESTIMATE (CALCULATED) > 59 mL/min/ (58.99-99999)
[2018-01-24 16:28] LABS: UREA NITROGEN (BUN) 13 mg/dL (9-23)
[2018-01-24 17:37] LABS: SERUM ETHYL ALCOHOL < 10 mg/dL
[2018-01-24 20:10] VITALS: BP 164/96
== END 2018-01-24 20:11 | disposition home or self-care (01) ==
LOC: EME 15:03
PROVIDERS: Emergency Medicine
DX: R44.0 Auditory hallucinations (principal); I44.5 Left posterior fascicular block; I67.2 Cerebral atherosclerosis; R94.31 Abnormal electrocardiogram [ECG] [EKG]; I10 Essential (primary) hypertension; F41.9 Anxiety disorder, unspecified; F32.9 Major depressive disorder, single episode, unspecified; F17.200 Nicotine dependence, unspecified, uncomplicated; Z79.82 Long term (current) use of aspirin; Z79.51 Long term (current) use of inhaled steroids; Z98.890 Other specified postprocedural states; Z86.73 Personal history of transient ischemic attack (TIA), and cerebral infarction without residual deficits; Z86.718 Personal history of other venous thrombosis and embolism; Z85.9 Personal history of malignant neoplasm, unspecified
CPT/HCPCS: 70450; 71045; 80048; 85025; 93005; 99281; 99284; G0480

== ENCOUNTER 2018-02-04 19:30 | Emergency (ER) | payer OTHER ==
[~2018-02-04] VITALS: Ht 177.8 cm; Wt 102.5 kg
[2018-02-04 19:35] VITALS: BP 114/66
[2018-02-05] MEDS ORDERED: OXYCODONE HCL10 MG PO (07:53)
== END 2018-02-04 21:26 | disposition left against medical advice (07) ==
LOC: EME 19:30
DX: Z53.21 Procedure and treatment not carried out due to patient leaving prior to being seen by health care provider (principal)

== ENCOUNTER 2018-02-05 07:03 | Day surgery (SDC) | payer OTHER ==
[~2018-02-05] VITALS: Ht 180.3 cm; Wt 102.1 kg
[2018-02-05 07:42] VITALS: BP 137/90
[2018-02-05] MEDS ORDERED: OXYCODONE HCL10 MG PO (07:53)
[2018-02-05 14:00] VITALS: BP 154/94
[2018-02-05 15:00] VITALS: BP 166/88
== END 2018-02-05 15:22 | disposition home or self-care (01) ==
LOC: SDC 07:03
DX: S93.422A Sprain of deltoid ligament of left ankle, initial encounter (principal); S93.492A Sprain of other ligament of left ankle, initial encounter; Z86.73 Personal history of transient ischemic attack (TIA), and cerebral infarction without residual deficits; I10 Essential (primary) hypertension; E78.5 Hyperlipidemia, unspecified; R01.1 Cardiac murmur, unspecified; I70.1 Atherosclerosis of renal artery; F10.20 Alcohol dependence, uncomplicated; F17.200 Nicotine dependence, unspecified, uncomplicated; F41.9 Anxiety disorder, unspecified; F32.9 Major depressive disorder, single episode, unspecified; Z86.711 Personal history of pulmonary embolism; Z79.82 Long term (current) use of aspirin; Z98.1 Arthrodesis status; Z96.659 Presence of unspecified artificial knee joint; Z83.79 Family history of other diseases of the digestive system; Z83.3 Family history of diabetes mellitus; Z83.49 Family history of other endocrine, nutritional and metabolic diseases
CPT/HCPCS: 73600; 73610; 76000; C1713; J0330; J0690; J1100; J1170; J2250; J2405; J2795; J3010; S0020

== ENCOUNTER 2018-02-20 03:35 | Emergency (ER) | payer OTHER ==
[~2018-02-20] VITALS: Ht 175.3 cm; Wt 102.3 kg
[~2018-02-20 03:35] MED LIST changes: +OXYCODONE HCL10 MG PO
[2018-02-20] MEDS ORDERED: ROXICODONE5 MG PO (04:49)
[2018-02-20 05:17] VITALS: BP 155/97
== END 2018-02-20 05:19 | disposition home or self-care (01) ==
LOC: EME 03:35
DX: G89.18 Other acute postprocedural pain (principal); M25.572 Pain in left ankle and joints of left foot
CPT/HCPCS: 99281; 99283

== ENCOUNTER 2018-03-13 17:38 | Emergency (ER) | payer OTHER ==
[~2018-03-13] VITALS: Ht 172.7 cm; Wt 103.7 kg
[~2018-03-13 17:38] MED LIST changes: +ROXICODONE5 MG PO
[2018-03-13 18:44] LABS: HEMATOCRIT 40.7 % (38.0-50.0); MCH 34.2 PG (29.0-34.0); MCHC 34.4 G/DL (30.0-36.0); MCV 99.5 FL (86-99); PLATELET COUNT 378 K/uL (156-360); RBC DIS.WIDTH-CV 13.8 % (11.8-14.6); RBC DIS.WIDTH-SD 51.1 % (39-53); RED BLOOD COUNT 4.09 M/uL (4.00-5.50); WHITE BLOOD COUNT 6.3 K/uL (4.1-10.2)
[2018-03-13 18:54] LABS: CHLORIDE 108 mEq/L (99-109); POTASSIUM 4.5 mEq/L (3.7-5.4); SODIUM 144 mEq/L (136-147)
[2018-03-13 18:56] LABS: GLUCOSE 126 mg/dL (70-99)
[2018-03-13 19:00] LABS: CREATININE 1.1 mg/dL (0.6-1.3); GFR ESTIMATE (CALCULATED) > 59 mL/min/ (58.99-99999); UREA NITROGEN (BUN) 17 mg/dL (9-23)
[2018-03-13 19:37] LABS: INTER. NORMALIZED RATIO 0.9
[2018-03-13 19:39] LABS: ALBUMIN 3.8 g/dL (3.2-4.8)
[2018-03-13 19:40] LABS: MAGNESIUM 2.2 mg/dL (1.3-2.7); PTT 25.1 SEC (25-37)
[2018-03-13 19:41] LABS: TOTAL PROTEIN 6.7 g/dL (6.4-8.3)
[2018-03-13 19:43] LABS: TOTAL BILIRUBIN 0.2 mg/dL (0.0-1.0)
[2018-03-13 19:44] LABS: ALKALINE PHOSPHATASE 77 IU/L (3-129); SERUM ETHYL ALCOHOL 290 mg/dL
[2018-03-13 19:47] LABS: ALT (GPT) 38 IU/L (3-49); AST (GOT) 34 IU/L (2-34); DIRECT BILIRUBIN 0.1 mg/dL (0.0-0.3)
[2018-03-13 19:48] LABS: LIPASE 118 U/L (1.0-51.0)
[2018-03-13 19:54] LABS: TROP-I INTERPRETATION NEGATIVE; TROPONIN-I < 0.01 ng/mL (0.0-0.30)
[2018-03-13 21:11] LABS: AMPHETAMINE NEGATIVE (500 ng/mL); BARBITURATES NEGATIVE (200 ng/mL); BENZODIAZEPINES NEGATIVE (150 ng/mL); BUPRENORPHINE NEGATIVE (10 ng/mL); COCAINE NEGATIVE (150 ng/mL); METHADONE NEGATIVE (200 ng/mL); METHAMPHETAMINE NEGATIVE (500 ng/mL); OPIATES (MORPHINE) NEGATIVE (100 ng/mL); OXYCODONE NEGATIVE (100 ng/mL); PHENCYCLIDINE NEGATIVE (25 ng/mL); PROPOXYPHENE NEGATIVE (300 ng/mL); THC CANNABINOIDS NEGATIVE (50 ng/mL); TRICYCLIC ANTIDEPRESSANTS NEGATIVE (300 ng/mL)
[2018-03-13] MEDS ORDERED: LOVENOX150 MG/1 M SC (23:09)
[2018-03-13] MEDS ORDERED: COUMADIN5 MG PO (23:09)
[2018-03-13 23:33] VITALS: BP 137/83
== END 2018-03-13 23:34 | disposition home or self-care (01) ==
LOC: EME 17:38
PROVIDERS: Emergency Medicine
DX: I82.412 Acute embolism and thrombosis of left femoral vein (principal); K85.20 Alcohol induced acute pancreatitis without necrosis or infection; F10.129 Alcohol abuse with intoxication, unspecified; S09.90XA Unspecified injury of head, initial encounter; M25.572 Pain in left ankle and joints of left foot; W18.30XA Fall on same level, unspecified, initial encounter; Z91.81 History of falling; Y90.8 Blood alcohol level of 240 mg/100 ml or more; G89.29 Other chronic pain; Z86.718 Personal history of other venous thrombosis and embolism; T45.516A Underdosing of anticoagulants, initial encounter; Z91.14 Patient's other noncompliance with medication regimen; Z86.711 Personal history of pulmonary embolism; F32.9 Major depressive disorder, single episode, unspecified; E78.5 Hyperlipidemia, unspecified; I10 Essential (primary) hypertension; Z86.73 Personal history of transient ischemic attack (TIA), and cerebral infarction without residual deficits; F17.200 Nicotine dependence, unspecified, uncomplicated
CPT/HCPCS: 70450; 71046; 72125; 72131; 73610; 80048; 80076; 83690; 83735; 84484; 85027; 85610; 85730; 93005; 93971; G0480; J1650; J2405; J7030

== ENCOUNTER 2018-03-16 01:01 | Inpatient (IN) | payer OTHER ==
[~2018-03-16] VITALS: Ht 177.8 cm; Wt 103.7 kg
[~2018-03-16 01:01] MED LIST changes: +COUMADIN5 MG PO; +LOVENOX150 MG/1 M SC
[2018-03-16 01:43] LABS: HEMOGLOBIN 14.9 G/DL (12.5-16.6); MCH 34.3 PG (29.0-34.0); MCHC 34.7 G/DL (30.0-36.0); MCV 98.9 FL (86-99); PLATELET COUNT 326 K/uL (156-360); RBC DIS.WIDTH-CV 13.8 % (11.8-14.6); RBC DIS.WIDTH-SD 50.4 % (39-53); RED BLOOD COUNT 4.35 M/uL (4.00-5.50)
[2018-03-16 01:57] LABS: CHLORIDE 108 mEq/L (99-109); POTASSIUM 4.2 mEq/L (3.7-5.4); SODIUM 145 mEq/L (136-147)
[2018-03-16 02:02] LABS: CREATININE 0.8 mg/dL (0.6-1.3); GFR ESTIMATE (CALCULATED) > 59 mL/min/ (58.99-99999); GLUCOSE 84 mg/dL (70-99)
[2018-03-16 02:03] LABS: UREA NITROGEN (BUN) 9 mg/dL (9-23)
[2018-03-16 03:31] LABS: ALBUMIN 3.9 g/dL (3.2-4.8)
[2018-03-16 03:34] LABS: TOTAL PROTEIN 7.2 g/dL (6.4-8.3)
[2018-03-16 03:36] LABS: TOTAL BILIRUBIN 0.2 mg/dL (0.0-1.0)
[2018-03-16 03:37] LABS: ALKALINE PHOSPHATASE 84 IU/L (3-129); SERUM ETHYL ALCOHOL 313 mg/dL
[2018-03-16 03:39] LABS: AST (GOT) 37 IU/L (2-34); DIRECT BILIRUBIN 0.2 mg/dL (0.0-0.3)
[2018-03-16 03:40] LABS: ALT (GPT) 32 IU/L (3-49); LIPASE 108 U/L (1.0-51.0)
[2018-03-16 07:22] LABS: HEMATOCRIT 42.2 % (38.0-50.0); HEMOGLOBIN 14.5 G/DL (12.5-16.6); MCHC 34.4 G/DL (30.0-36.0); MCV 99.1 FL (86-99); PLATELET COUNT 303 K/uL (156-360); RBC DIS.WIDTH-SD 51.3 % (39-53); RED BLOOD COUNT 4.26 M/uL (4.00-5.50); WHITE BLOOD COUNT 6.2 K/uL (4.1-10.2)
[2018-03-16 07:53] LABS: ALBUMIN 3.8 G/DL (3.2-4.8); ALKALINE PHOSPHATASE 72 IU/L (3-129); ALT (GPT) 23 IU/L (3-49); AST (GOT) 30 IU/L (2-34); CHLORIDE 110 MEQ/L (99-109); CREATININE 0.9 MG/DL (0.6-1.3); GFR ESTIMATE (CALCULATED) > 59 mL/min/ (58.99-99999); GLUCOSE 96 mg/dL (70-99); POTASSIUM 4.1 MEQ/L (3.7-5.4); SODIUM 143 MEQ/L (136-147); TOTAL BILIRUBIN 0.3 MG/DL (0.0-1.0); TOTAL PROTEIN 6.7 G/DL (6.4-8.3); UREA NITROGEN (BUN) 9 mg/dL (9-23)
[2018-03-16] MEDS ORDERED: WARFARIN SODIUM5 MG PO (08:23)
[2018-03-16] MEDS ORDERED: LOVENOX150 MG/1 M SC (12:14)
[2018-03-16 12:40] VITALS: BP 147/81
[2018-03-16 16:24] VITALS: BP 141/82
[2018-03-16 20:35] VITALS: BP 142/82
[2018-03-17] VITALS: BP 148/82
[2018-03-17 04:00] VITALS: BP 150/73
[2018-03-17 07:26] LABS: HEMATOCRIT 45.9 % (38.0-50.0); HEMOGLOBIN 15.6 G/DL (12.5-16.6); MCH 33.3 PG (29.0-34.0); MCV 98.1 FL (86-99); PLATELET COUNT 270 K/uL (156-360); RBC DIS.WIDTH-CV 13.3 % (11.8-14.6); RBC DIS.WIDTH-SD 48.5 % (39-53); RED BLOOD COUNT 4.68 M/uL (4.00-5.50); WHITE BLOOD COUNT 5.4 K/uL (4.1-10.2)
[2018-03-17 07:46] LABS: ALBUMIN 3.7 G/DL (3.2-4.8); ALKALINE PHOSPHATASE 77 IU/L (3-129); ALT (GPT) 25 IU/L (3-49); AST (GOT) 31 IU/L (2-34); CHLORIDE 99 MEQ/L (99-109); CREATININE 0.8 MG/DL (0.6-1.3); GFR ESTIMATE (CALCULATED) > 59 mL/min/ (58.99-99999); GLUCOSE 86 mg/dL (70-99); POTASSIUM 3.6 MEQ/L (3.7-5.4); SODIUM 137 MEQ/L (136-147); TOTAL BILIRUBIN 0.5 MG/DL (0.0-1.0); TOTAL PROTEIN 6.6 G/DL (6.4-8.3); UREA NITROGEN (BUN) 5 mg/dL (9-23)
[2018-03-17 08:10] VITALS: BP 142/90
[2018-03-17 11:28] LABS: INTER. NORMALIZED RATIO 1.2
[2018-03-17 12:15] LABS: URIC ACID 4.5 mg/dL (3.1-9.2)
[2018-03-17 16:15] VITALS: BP 147/82
[2018-03-17 19:57] VITALS: BP 119/74
[2018-03-18] VITALS: BP 133/90
[2018-03-18 03:57] VITALS: BP 128/82
[2018-03-18 06:09] LABS: INTER. NORMALIZED RATIO 1.2
[2018-03-18 06:12] LABS: PTT 98.6 SEC (25-37)
[2018-03-18 06:33] LABS: CHLORIDE 99 MEQ/L (99-109); CREATININE 0.9 MG/DL (0.6-1.3); GFR ESTIMATE (CALCULATED) > 59 mL/min/ (58.99-99999); GLUCOSE 99 mg/dL (70-99); SODIUM 137 MEQ/L (136-147); UREA NITROGEN (BUN) 9 mg/dL (9-23)
[2018-03-18 06:34] LABS: POTASSIUM 4.5 MEQ/L (3.7-5.4)
[2018-03-18 08:00] VITALS: BP 142/81
[2018-03-18 11:39] VITALS: BP 130/74
[2018-03-18 15:35] VITALS: BP 140/78
[2018-03-19 00:17] VITALS: BP 133/81
[2018-03-19 05:37] LABS: INTER. NORMALIZED RATIO 1.2
[2018-03-19 05:39] LABS: PTT 79.4 SEC (25-37)
[2018-03-19 08:03] VITALS: BP 119/63
[2018-03-19 16:06] VITALS: BP 135/74
[2018-03-19] MEDS ORDERED: ELIQUIS5 MG PO (16:49)
[2018-03-19] MEDS ORDERED: KEFLEX500 MG PO (16:51)
== END 2018-03-19 18:00 | disposition home or self-care (01) | DRG 299 ==
LOC: EME 01:01 → EDOF 08:17 → 5SOUTH 08:17 → ENRESERV 08:18 → 5SOUTH 12:33
PROVIDERS: Emergency Medicine; Hospitalist; Internal Medicine; Physician Assistant Medical
DX: I82.432 Acute embolism and thrombosis of left popliteal vein (principal); I82.442 Acute embolism and thrombosis of left tibial vein; I82.4Z2 Acute embolism and thrombosis of unspecified deep veins of left distal lower extremity; L03.116 Cellulitis of left lower limb; I26.99 Other pulmonary embolism without acute cor pulmonale; T45.516A Underdosing of anticoagulants, initial encounter; Z91.120 Patient's intentional underdosing of medication regimen due to financial hardship; F10.229 Alcohol dependence with intoxication, unspecified; Y90.8 Blood alcohol level of 240 mg/100 ml or more; R09.02 Hypoxemia; E87.6 Hypokalemia; I69.354 Hemiplegia and hemiparesis following cerebral infarction affecting left non-dominant side; I10 Essential (primary) hypertension; E78.5 Hyperlipidemia, unspecified; F32.9 Major depressive disorder, single episode, unspecified; F41.9 Anxiety disorder, unspecified; F17.200 Nicotine dependence, unspecified, uncomplicated; Z91.14 Patient's other noncompliance with medication regimen; Z86.711 Personal history of pulmonary embolism; Z86.718 Personal history of other venous thrombosis and embolism; Z83.3 Family history of diabetes mellitus
CPT/HCPCS: 70450; 71046; 71275; 72125; 72131; 73610; 80048; 80053; 80076; 82948; 83605; 83690; 83735; 84484; 84550; 85027; 85379; 85610; 85730; 87040; 93005; 93971; 94799; 99281; 99284; 99285; G0480; J0690; J1650; J2405; J3370; J3411; J7030; J7042

== ENCOUNTER 2018-03-31 19:43 | Emergency (ER) | payer OTHER ==
[~2018-03-31] VITALS: Ht 177.8 cm; Wt 100.7 kg
[~2018-03-31 19:43] MED LIST changes: +KEFLEX500 MG PO; +WARFARIN SODIUM5 MG PO
[2018-03-31] MEDS ORDERED: PERCOCET 5/31 TABLET PO (23:54)
[2018-03-31] MEDS ORDERED: VALIUM5 MG PO (23:54)
[2018-04-01 00:03] VITALS: BP 144/77
== END 2018-04-01 00:03 | disposition home or self-care (01) ==
LOC: EME 19:43
DX: S09.90XA Unspecified injury of head, initial encounter (principal); S93.402A Sprain of unspecified ligament of left ankle, initial encounter; S30.0XXA Contusion of lower back and pelvis, initial encounter; S16.1XXA Strain of muscle, fascia and tendon at neck level, initial encounter; W01.198A Fall on same level from slipping, tripping and stumbling with subsequent striking against other object, initial encounter; Y93.E1 Activity, personal bathing and showering; M47.892 Other spondylosis, cervical region; Z98.1 Arthrodesis status; I10 Essential (primary) hypertension; E78.5 Hyperlipidemia, unspecified; F17.200 Nicotine dependence, unspecified, uncomplicated; Z86.73 Personal history of transient ischemic attack (TIA), and cerebral infarction without residual deficits; Z86.711 Personal history of pulmonary embolism; Z86.718 Personal history of other venous thrombosis and embolism; Z87.19 Personal history of other diseases of the digestive system; Z87.442 Personal history of urinary calculi
CPT/HCPCS: 70450; 72100; 72125; 73610; 99281; 99284

== ENCOUNTER 2018-04-05 02:47 | Emergency (ER) | payer OTHER ==
[~2018-04-05] VITALS: Ht 177.8 cm; Wt 101.1 kg
[~2018-04-05 02:47] MED LIST changes: +PERCOCET 5/31 TABLET PO; +VALIUM5 MG PO
[2018-04-05 05:45] VITALS: BP 121/66
== END 2018-04-05 05:48 | disposition home or self-care (01) ==
LOC: EME → EDBD 02:47 → EME 05:48
DX: S39.012A Strain of muscle, fascia and tendon of lower back, initial encounter (principal); F10.10 Alcohol abuse, uncomplicated; W18.30XA Fall on same level, unspecified, initial encounter; Y92.009 Unspecified place in unspecified non-institutional (private) residence as the place of occurrence of the external cause; I10 Essential (primary) hypertension; E78.5 Hyperlipidemia, unspecified; F17.200 Nicotine dependence, unspecified, uncomplicated; Z86.73 Personal history of transient ischemic attack (TIA), and cerebral infarction without residual deficits; Z86.718 Personal history of other venous thrombosis and embolism; Z87.442 Personal history of urinary calculi; Z85.9 Personal history of malignant neoplasm, unspecified; Z87.19 Personal history of other diseases of the digestive system
CPT/HCPCS: 72100; 99281; 99284

== ENCOUNTER 2018-04-05 18:38 | Inpatient (IN) | payer OTHER ==
[~2018-04-05] VITALS: Ht 177.8 cm; Wt 100.0 kg
[2018-04-05 19:27] LABS: AMPHETAMINE NEGATIVE (500 ng/mL); BARBITURATES NEGATIVE (200 ng/mL); BENZODIAZEPINES PRESUMPTIVE POSITIVE (150 ng/mL); BUPRENORPHINE NEGATIVE (10 ng/mL); COCAINE NEGATIVE (150 ng/mL); METHADONE NEGATIVE (200 ng/mL); METHAMPHETAMINE NEGATIVE (500 ng/mL); OPIATES (MORPHINE) NEGATIVE (100 ng/mL); OXYCODONE NEGATIVE (100 ng/mL); PHENCYCLIDINE NEGATIVE (25 ng/mL); PROPOXYPHENE NEGATIVE (300 ng/mL); THC CANNABINOIDS NEGATIVE (50 ng/mL); TRICYCLIC ANTIDEPRESSANTS NEGATIVE (300 ng/mL)
[2018-04-05 19:28] LABS: HEMATOCRIT 47.2 % (38.0-50.0); HEMOGLOBIN 16.7 G/DL (12.5-16.6); MCHC 35.4 G/DL (30.0-36.0); MCV 96.1 FL (86-99); RBC DIS.WIDTH-CV 13.7 % (11.8-14.6); RBC DIS.WIDTH-SD 49.1 % (39-53); RED BLOOD COUNT 4.91 M/uL (4.00-5.50); WHITE BLOOD COUNT 5.3 K/uL (4.1-10.2)
[2018-04-05 19:33] LABS: CHLORIDE 101 mEq/L (99-109)
[2018-04-05 19:34] LABS: POTASSIUM 4.2 mEq/L (3.7-5.4); SODIUM 141 mEq/L (136-147)
[2018-04-05 19:35] LABS: GLUCOSE 97 mg/dL (70-99)
[2018-04-05 19:38] LABS: SERUM ETHYL ALCOHOL 328 mg/dL
[2018-04-05 19:39] LABS: CREATININE 0.9 mg/dL (0.6-1.3); GFR ESTIMATE (CALCULATED) > 59 mL/min/ (58.99-99999)
[2018-04-05 19:41] LABS: UREA NITROGEN (BUN) 16 mg/dL (9-23)
[2018-04-05 19:42] LABS: SALICYLATE < 5.0 MG/DL (15-30)
[2018-04-05 19:43] LABS: ACETAMINOPHEN (TYLENOL) < 10 mcg/mL (10-30)
[2018-04-05 20:08] LABS: BENZODIAZEPINES, URINE SCREEN Negative (200 ng/mL)
[2018-04-05 20:24] LABS: HEMATOLOGY COMMENT 1 SN; PLAT.SUFFICIENCY ADEQUATE
[2018-04-05 20:44] LABS: PLATELET COUNT 177 K/uL (156-360)
[2018-04-06 08:23] VITALS: BP 132/73
[2018-04-06 16:19] VITALS: BP 157/73
[2018-04-07 07:52] VITALS: BP 120/70
[2018-04-07 16:25] VITALS: BP 137/62
[2018-04-08] MEDS ORDERED: ESCITALOPRAM OX10 MG PO (09:16)
[2018-04-08] MEDS ORDERED: FOLIC ACID1 MG PO (09:16)
[2018-04-08] MEDS ORDERED: WELLBUTRIN SR150 MG PO (09:16)
[2018-04-08] MEDS ORDERED: VITAMIN B-1100 MG PO (09:16)
[2018-04-08 09:53] VITALS: BP 117/56
== END 2018-04-08 12:18 | disposition home or self-care (01) | DRG 885 ==
LOC: EME 18:38 → 1WEST 04-06 07:54 → EDOF 04-06 07:54 → CANRESERV 04-06 07:55 → ENRESERV 04-06 07:55 → 1WEST 04-06 08:15
PROVIDERS: Emergency Medicine
DX: F33.2 Major depressive disorder, recurrent severe without psychotic features (principal); F10.239 Alcohol dependence with withdrawal, unspecified; F10.229 Alcohol dependence with intoxication, unspecified; Y90.8 Blood alcohol level of 240 mg/100 ml or more; S10.11XA Abrasion of throat, initial encounter; X78.1XXA Intentional self-harm by knife, initial encounter; I10 Essential (primary) hypertension; E78.5 Hyperlipidemia, unspecified; F17.210 Nicotine dependence, cigarettes, uncomplicated; E66.9 Obesity, unspecified; Z86.73 Personal history of transient ischemic attack (TIA), and cerebral infarction without residual deficits; Z86.711 Personal history of pulmonary embolism; Z86.718 Personal history of other venous thrombosis and embolism; Z79.01 Long term (current) use of anticoagulants; Z68.31 Body mass index [BMI] 31.0-31.9, adult
CPT/HCPCS: 80048; 84999; 85027; 90837; 99281; 99283; G0480

== ENCOUNTER 2018-04-16 23:01 | Emergency (ER) | payer OTHER ==
[~2018-04-16] VITALS: Ht 177.8 cm; Wt 104.5 kg
[~2018-04-16 23:01] MED LIST changes: +ESCITALOPRAM OX10 MG PO
[2018-04-17 01:26] VITALS: BP 120/82
== END 2018-04-17 01:23 | disposition home or self-care (01) ==
LOC: EME 23:01
PROC: 0HQ1XZZ Repair Face Skin, External Approach (ICD-10-PCS; principal; 2018-04-16)
DX: S01.111A Laceration without foreign body of right eyelid and periocular area, initial encounter (principal); W01.0XXA Fall on same level from slipping, tripping and stumbling without subsequent striking against object, initial encounter; Y92.003 Bedroom of unspecified non-institutional (private) residence as the place of occurrence of the external cause; F10.99 Alcohol use, unspecified with unspecified alcohol-induced disorder; M47.892 Other spondylosis, cervical region; I10 Essential (primary) hypertension; E78.5 Hyperlipidemia, unspecified; Z86.711 Personal history of pulmonary embolism; Z86.718 Personal history of other venous thrombosis and embolism; Z86.73 Personal history of transient ischemic attack (TIA), and cerebral infarction without residual deficits; Z79.01 Long term (current) use of anticoagulants; F17.200 Nicotine dependence, unspecified, uncomplicated
CPT/HCPCS: 70450; 72125; 99281; 99284

== ENCOUNTER → 2018-05-25 | Emergency (ER) | payer OTHER ==
[~2018-05-25] VITALS: Ht 177.8 cm; Wt 104.5 kg
[2018-05-25 20:29] LABS: HEMATOCRIT 43.3 % (38.0-50.0); HEMOGLOBIN 15.3 G/DL (12.5-16.6); MCH 34.1 PG (29.0-34.0); MCHC 35.3 G/DL (30.0-36.0); MCV 96.4 FL (86-99); PLATELET COUNT 136 K/uL (156-360); RBC DIS.WIDTH-SD 48.9 % (39-53); RED BLOOD COUNT 4.49 M/uL (4.00-5.50); WHITE BLOOD COUNT 5.7 K/uL (4.1-10.2)
[2018-05-25 20:37] LABS: ALBUMIN 3.7 g/dL (3.2-4.8); CHLORIDE 104 mEq/L (99-109); POTASSIUM 4.1 mEq/L (3.7-5.4); SODIUM 140 mEq/L (136-147)
[2018-05-25 20:40] LABS: GLUCOSE 80 mg/dL (70-99); TOTAL PROTEIN 6.8 g/dL (6.4-8.3)
[2018-05-25 20:42] LABS: TOTAL BILIRUBIN 0.4 mg/dL (0.0-1.0)
[2018-05-25 20:43] LABS: ALKALINE PHOSPHATASE 77 IU/L (3-129); SERUM ETHYL ALCOHOL 309 mg/dL
[2018-05-25 20:44] LABS: CREATININE 0.9 mg/dL (0.6-1.3); GFR ESTIMATE (CALCULATED) > 59 mL/min/ (58.99-99999)
[2018-05-25 20:45] LABS: AST (GOT) 58 IU/L (2-34); UREA NITROGEN (BUN) 11 mg/dL (9-23)
[2018-05-25 20:46] LABS: ALT (GPT) 37 IU/L (3-49)
[2018-05-25 22:35] LABS: APPEARANCE SL.HAZY ((CLEAR)); BILIRUBIN NEGATIVE; BLOOD SMALL; COLOR YELLOW ((YELLOW)); GLUCOSE (STRIP) NEGATIVE; KETONES 5; LEUKOCYTES NEGATIVE; NITRITE NEGATIVE; PROTEIN (STRIP) NEGATIVE; SPECIFIC GRAVITY 1.016 (1.000-1.030); UROBILINOGEN 0.2 MG/DL (0.2-1.0)
[2018-05-25 22:41] LABS: BACTERIA NONE SEEN /HPF; EPITHELIAL CELLS RARE /HPF; MUCUS TRACE /LPF; RED BLOOD CELLS 0-5 /HPF (0-5); WHITE BLOOD CELLS 0-5 /HPF (0-5)
[2018-05-25 23:16] LABS: AMPHETAMINE NEGATIVE (500 ng/mL); BARBITURATES NEGATIVE (200 ng/mL); BENZODIAZEPINES PRESUMPTIVE POSITIVE (150 ng/mL); BUPRENORPHINE NEGATIVE (10 ng/mL); COCAINE NEGATIVE (150 ng/mL); METHADONE NEGATIVE (200 ng/mL); METHAMPHETAMINE NEGATIVE (500 ng/mL); OPIATES (MORPHINE) NEGATIVE (100 ng/mL); OXYCODONE NEGATIVE (100 ng/mL); PHENCYCLIDINE NEGATIVE (25 ng/mL); PROPOXYPHENE NEGATIVE (300 ng/mL); THC CANNABINOIDS NEGATIVE (50 ng/mL); TRICYCLIC ANTIDEPRESSANTS NEGATIVE (300 ng/mL)
[2018-05-26 03:22] LABS: BENZODIAZEPINES, URINE SCREEN POSITIVE (200 ng/mL)
[2018-05-26 07:38] VITALS: BP 155/78
== END | disposition home or self-care (01) ==
LOC: EME 17:58
PROVIDERS: Emergency Medicine
DX: I82.433 Acute embolism and thrombosis of popliteal vein, bilateral (principal); F10.129 Alcohol abuse with intoxication, unspecified; Y90.8 Blood alcohol level of 240 mg/100 ml or more; F33.2 Major depressive disorder, recurrent severe without psychotic features; Z91.19 Patient's noncompliance with other medical treatment and regimen; I10 Essential (primary) hypertension; E78.5 Hyperlipidemia, unspecified; Z86.718 Personal history of other venous thrombosis and embolism; Z86.711 Personal history of pulmonary embolism; Z87.442 Personal history of urinary calculi; Z86.73 Personal history of transient ischemic attack (TIA), and cerebral infarction without residual deficits; F17.200 Nicotine dependence, unspecified, uncomplicated
CPT/HCPCS: 80053; 81003; 84999; 85027; 90837; 93970; 99281; 99285; G0480

== ENCOUNTER 2018-06-20 14:32 | Emergency (ER) | payer OTHER ==
[~2018-06-20] VITALS: Ht 177.8 cm; Wt 101.8 kg
[2018-06-20 15:28] LABS: BASOPHIL COUNT 0.1 K/uL (0-0.1); EOSINOPHIL (%) 8.6 % (0-5); EOSINOPHIL COUNT 0.5 K/uL (0-0.3); HEMATOCRIT 44.5 % (38.0-50.0); HEMOGLOBIN 15.5 G/DL (12.5-16.6); IMMATURE GRANULOCYTE (%) 0.2 % (0.0-0.7); LYMPHOCYTE (%) 31.4 % (15-42); LYMPHOCYTE COUNT 1.9 K/uL (1.0-2.8); MCH 33.2 PG (29.0-34.0); MCHC 34.8 G/DL (30.0-36.0); MCV 95.3 FL (86-99); MONOCYTE COUNT 0.6 K/uL (0-0.8); NEUTROPHIL (%) 49.8 % (45-76); PLATELET COUNT 141 K/uL (156-360); RBC DIS.WIDTH-CV 14.4 % (11.8-14.6); RBC DIS.WIDTH-SD 50.1 % (39-53); RED BLOOD COUNT 4.67 M/uL (4.00-5.50); WHITE BLOOD COUNT 6.1 K/uL (4.1-10.2)
[2018-06-20 15:39] LABS: ALBUMIN 3.9 g/dL (3.2-4.8); CHLORIDE 102 mEq/L (99-109); POTASSIUM 3.4 mEq/L (3.7-5.4); SODIUM 139 mEq/L (136-147)
[2018-06-20 15:40] LABS: INTER. NORMALIZED RATIO 4.1
[2018-06-20 15:42] LABS: GLUCOSE 80 mg/dL (70-99)
[2018-06-20 15:43] LABS: TOTAL BILIRUBIN 0.7 mg/dL (0.0-1.0)
[2018-06-20 15:44] LABS: SERUM ETHYL ALCOHOL 313 mg/dL
[2018-06-20 15:45] LABS: ALKALINE PHOSPHATASE 75 IU/L (3-129); CREATININE 0.8 mg/dL (0.6-1.3); GFR ESTIMATE (CALCULATED) > 59 mL/min/ (58.99-99999)
[2018-06-20 15:46] LABS: UREA NITROGEN (BUN) 9 mg/dL (9-23)
[2018-06-20 15:47] LABS: AST (GOT) 43 IU/L (2-34)
[2018-06-20 15:48] LABS: ALT (GPT) 22 IU/L (3-49)
[2018-06-20 16:03] LABS: APPEARANCE CLEAR ((CLEAR)); BILIRUBIN NEGATIVE; BLOOD SMALL; COLOR STRAW ((YELLOW)); GLUCOSE (STRIP) NEGATIVE; KETONES NEGATIVE; LEUKOCYTES NEGATIVE; NITRITE NEGATIVE; PROTEIN (STRIP) NEGATIVE; SPECIFIC GRAVITY 1.006 (1.000-1.030); UROBILINOGEN 0.2 MG/DL (0.2-1.0)
[2018-06-20 16:06] LABS: BACTERIA NONE SEEN /HPF; EPITHELIAL CELLS NONE SEEN /HPF; MUCUS NONE SEEN /LPF; RED BLOOD CELLS 0-5 /HPF (0-5); UCUL ADDED? NO; WHITE BLOOD CELLS 0-5 /HPF (0-5)
[2018-06-20 18:27] VITALS: BP 139/82
== END 2018-06-20 18:30 | disposition home or self-care (01) ==
LOC: EME 14:32
PROVIDERS: Emergency Medicine
DX: M54.9 Dorsalgia, unspecified (principal); F10.129 Alcohol abuse with intoxication, unspecified; Y90.8 Blood alcohol level of 240 mg/100 ml or more; K76.0 Fatty (change of) liver, not elsewhere classified; I10 Essential (primary) hypertension; E78.5 Hyperlipidemia, unspecified; F17.200 Nicotine dependence, unspecified, uncomplicated; Z86.718 Personal history of other venous thrombosis and embolism; Z86.711 Personal history of pulmonary embolism; Z79.01 Long term (current) use of anticoagulants; Z87.442 Personal history of urinary calculi; Z86.73 Personal history of transient ischemic attack (TIA), and cerebral infarction without residual deficits
CPT/HCPCS: 74177; 80053; 81003; 85025; 85610; 86850; 86900; 86901; 99281; 99285; G0480; J3010; J7040

== ENCOUNTER 2018-06-24 11:44 | Observation (INO) | payer OTHER ==
[~2018-06-24] VITALS: Ht 177.8 cm; Wt 103.5 kg
[2018-06-24 12:28] LABS: HEMOGLOBIN 14.4 G/DL (12.5-16.6); MCH 33.1 PG (29.0-34.0); MCHC 34.3 G/DL (30.0-36.0); MCV 96.6 FL (86-99); RBC DIS.WIDTH-CV 14.4 % (11.8-14.6); RBC DIS.WIDTH-SD 51.3 % (39-53); RED BLOOD COUNT 4.35 M/uL (4.00-5.50); WHITE BLOOD COUNT 8.9 K/uL (4.1-10.2)
[2018-06-24 12:34] LABS: CHLORIDE 100 mEq/L (99-109); SODIUM 134 mEq/L (136-147)
[2018-06-24 12:35] LABS: GLUCOSE 70 mg/dL (70-99)
[2018-06-24 12:36] LABS: POTASSIUM 4.1 mEq/L (3.7-5.4)
[2018-06-24 12:39] LABS: GFR ESTIMATE (CALCULATED) 48 mL/min/ (58.99-99999)
[2018-06-24 12:42] LABS: CREATININE 1.6 mg/dL (0.6-1.3); UREA NITROGEN (BUN) 42 mg/dL (9-23)
[2018-06-24 13:02] LABS: INTER. NORMALIZED RATIO 2.8
[2018-06-24 13:05] LABS: PTT 38.7 SEC (25-37)
[2018-06-24 13:21] LABS: PLAT.SUFFICIENCY DECREASED
[2018-06-24 13:24] LABS: PLATELET COUNT 94 K/uL (156-360)
[2018-06-24] MEDS ORDERED: FOLIC ACID1 MG PO (15:16)
[2018-06-24] MEDS ORDERED: FLEXERIL10 MG PO (15:18)
[2018-06-24] MEDS ORDERED: COUMADIN1 MG PO (15:19)
[2018-06-24] MEDS ORDERED: COUMADIN5 MG PO (15:20)
[2018-06-24 16:20] LABS: SERUM ETHYL ALCOHOL < 10 mg/dL
[2018-06-24 18:16] VITALS: BP 133/65
[2018-06-24 22:05] LABS: CHLORIDE 100 MEQ/L (99-109); POTASSIUM 4.2 MEQ/L (3.7-5.4); SODIUM 132 MEQ/L (136-147); UREA NITROGEN (BUN) 32 mg/dL (9-23)
[2018-06-24 22:32] LABS: CREATININE 1.1 MG/DL (0.6-1.3); GFR ESTIMATE (CALCULATED) > 59 mL/min/ (58.99-99999); GLUCOSE 98 mg/dL (70-99)
[2018-06-25 07:32] VITALS: BP 140/70
[2018-06-25] MEDS ORDERED: ANIMAL CHEWS1 EACH PO (09:08)
[2018-06-25 09:40] LABS: INTER. NORMALIZED RATIO 3.2
[2018-06-25 09:52] LABS: CHLORIDE 104 mEq/L (99-109); POTASSIUM 3.8 mEq/L (3.7-5.4); SODIUM 136 mEq/L (136-147)
[2018-06-25 09:53] LABS: GLUCOSE 98 mg/dL (70-99)
[2018-06-25 09:57] LABS: CREATININE 0.8 mg/dL (0.6-1.3); GFR ESTIMATE (CALCULATED) > 59 mL/min/ (58.99-99999)
[2018-06-25 09:58] LABS: UREA NITROGEN (BUN) 16 mg/dL (9-23)
[2018-06-25 11:26] VITALS: BP 134/76
[2018-06-25 15:28] VITALS: BP 119/66
[2018-06-25 20:43] VITALS: BP 102/55
== END 2018-06-25 22:35 | disposition home or self-care (01) ==
LOC: EME 11:44 → EDOF 15:48 → 4SOUTH 15:48 → EDOF 15:48 → ENRESERV 15:57 → 4SOUTH 18:02
PROVIDERS: Emergency Medicine; Internal Medicine; Nurse Practitioner Family
DX: N17.9 Acute kidney failure, unspecified (principal); F10.20 Alcohol dependence, uncomplicated; Y90.0 Blood alcohol level of less than 20 mg/100 ml; I48.91 Unspecified atrial fibrillation; Z79.01 Long term (current) use of anticoagulants; R25.1 Tremor, unspecified; R47.01 Aphasia; G47.30 Sleep apnea, unspecified; D69.3 Immune thrombocytopenic purpura; Z86.73 Personal history of transient ischemic attack (TIA), and cerebral infarction without residual deficits; F17.210 Nicotine dependence, cigarettes, uncomplicated; F32.9 Major depressive disorder, single episode, unspecified; F41.9 Anxiety disorder, unspecified; Z87.442 Personal history of urinary calculi; Z86.718 Personal history of other venous thrombosis and embolism; Z86.711 Personal history of pulmonary embolism; I10 Essential (primary) hypertension; G89.29 Other chronic pain; M54.5 Low back pain; E78.5 Hyperlipidemia, unspecified; Z83.3 Family history of diabetes mellitus
CPT/HCPCS: 70450; 80048; 80048 91; 81003; 83735; 85027; 85610; 85730; 93005; 99281; 99283; G0378; G0480; J2060; J3411; J3475; J7030

== ENCOUNTER 2018-06-29 16:54 | Emergency (ER) | payer OTHER ==
[~2018-06-29] VITALS: Ht 180.3 cm; Wt 104.0 kg
[~2018-06-29 16:54] MED LIST changes: +ANIMAL CHEWS1 EACH PO; +COUMADIN1 MG PO; +FLEXERIL10 MG PO
[2018-06-29 19:15] VITALS: BP 127/78
== END 2018-06-29 19:16 | disposition home or self-care (01) ==
LOC: EME 16:54
DX: M25.532 Pain in left wrist (principal); M25.432 Effusion, left wrist; Z98.890 Other specified postprocedural states; I10 Essential (primary) hypertension; E78.5 Hyperlipidemia, unspecified; Z86.711 Personal history of pulmonary embolism; Z86.718 Personal history of other venous thrombosis and embolism; Z86.73 Personal history of transient ischemic attack (TIA), and cerebral infarction without residual deficits; Z79.01 Long term (current) use of anticoagulants; F17.200 Nicotine dependence, unspecified, uncomplicated
CPT/HCPCS: 73110; 73130; 99281; 99284